=== PATIENT | male | born 1985 | race Caucasian/White ===

== ENCOUNTER 2016-06-29 18:43 | Emergency (ER) | payer OTHER ==
[~2016-06-29] VITALS: Ht 175.3 cm; Wt 101.7 kg
[~2016-06-29 18:43] MED LIST: ASCO500T16 PO; CPR500 PO; FISHOIL PO; HYDR-3124 PO; HYOS0.1255 PO; MULTTAB58 PO; OXYC-81 PO; POLY335040 PO; Probiotic PO
[2016-06-29 18:46] VITALS: BP 166/101; PULSE 86; TEMP 36.6; O2SAT 95; Ht 175.3 cm; Wt 101.7 kg
[2016-06-29] MEDS ORDERED: OXYCODONE/ACETAMINOPHEN 5-325 TAB PO STA (19:06)
--- NOTE | 2016-06-29 19:41 | DIAGNOSTIC IMAGING REPORT ---
THORACIC SPINE 3 VIEWS HISTORY: R sided thoracic back pain COMPARISON: None. FINDINGS: There is no fracture. No subluxation. Disc spaces are preserved. IMPRESSION: No fracture or subluxation within the thoracic spine. Electronically signed by: Adelfo Melgar M.D. 06/29/2016 7:40 PM Dictated Date/Time: 06/29/2016 7:37 PM
[2016-06-29] MEDS ORDERED: CYCL10TA6 PO (19:53)
[2016-06-29] MEDS ORDERED: OXYC-57 PO (19:53)
[2016-06-29] MEDS ORDERED: PERCOCET HOME PACK PO ONE (20:00)
[2016-06-29] MEDS ORDERED: FLEXERIL HOME PACK 10 MG VIAL PO ONE (20:00)
--- NOTE | 2016-07-01 00:02 | EMERGENCY ROOM VISIT NOTE ---
ED Visit Note First contact with patient: 18:57 Chief Complaint: Back pain. History of Present Illness: Mr. Reardon is a 31-year-old white male who ambulates into the ED accompanied waning of thoracic back pain Patient denies any previous significant history related to his back pain. Patient reports yesterday he picked up his daughter and developed thoracic back pain similar but not as intense as the pain he is having today between his shoulder blades. Approximately one hour after the pain started itself resolved. Patient goes on to report that this afternoon when he woke up from a nap he was having thoracic back pain in the same location between the shoulder blades with right sided prominence; pain has been constant for approximately 6 hours. He reports initially the pain was mild and became severe and has been constant throughout the day. Currently he rates his discomfort as a cramping sensation. He rates his discomfort 8/10. His pain is nonradiating. His pain worsens with palpation of the paraspinous muscles and when his arm saying dependent. He has mild relief when he raises his arms above his head. He has not taken any medications for pain prior to arrival at the hospital. He denies any associated since symptoms including recent direct or repetitive trauma, fevers, chills, sweats, skin eruptions, skin color changes, headache, dizziness, lightheadedness, upper respiratory tract symptoms, cough, wheezing, shortness of breath, abdominal pain , nausea, vomiting, diarrhea, constipation, rectal bleeding, black/tarry stools , urinary symptoms, hematuria, upper extremity weakness/numbness/tingling, neck pain. Review of Systems: As noted above in history of present illness. All body systems were reviewed and found to be negative as noted above. Past Medical History: Patient denies. Current Medications: Patient denies. Allergies to Medications: Patient denies. Social History: Patient is currently employed; he feels safe in his home environment; he admits to tobacco use. Physical Examination: Vital Signs: Date Time Temp Pulse Resp B/P Pulse Ox O2 Delivery O2 Flow Rate FiO2 06/29/16 18:46 36.6 86 18 166/101 95 Room Air GENERAL: 31-year-old male in mild to moderate distress due to pain, nontoxic- appearing, afebrile and hemodynamically stable. NEUROLOGICAL: Awake, alert and oriented to person, place and time. Answering questions appropriately and following commands. Normal gait. Good hand eye coordination. No focal motor or sensory deficits. SKIN: Warm, dry and pink. No soft tissue eruptions or trauma noted. HEENT: Atraumatic and normocephalic. BACK: No tenderness over the bony cervical, thoracic and lumbar spines. Moderate tenderness throughout the bilateral mid trapezius and rhomboid muscles with muscle spasm. No bony deformity, bony crepitus, step-offs, swelling or ecchymosis. No skin eruptions. No CVA tenderness. THORAX: Lungs sounds are clear to auscultation and equal bilaterally with symmetrical chest wall. No wheezing, rales or rhonchi. No crepitus, tenderness , subcutaneous air or deformities noted. ABDOMEN: Flat, soft and nontender. Positive bowel sounds in all quadrants. No guarding, rigidity or organomegaly. UPPER EXTREMITIES: Moves all extremities well on command and with purpose. No tenderness in the shoulders, humerus is, elbows, forearms, wrists or hands. Full range of motion of the shoulders, elbows, forearms, wrists and hands against resistance. 2+ bicipital, tricipital and brachial radialis deep tendon reflexes intact and equal bilaterally. Able to distinguish light sensations through all dermatomes of the upper extremities. Throughout the extremities to skin was warm and pink and capillary refill is brisk. Distal pulses were intact and equal bilaterally. He was able to distinguish light sensations through all dermatomes. 5/5 muscle strength in flexion, extension, abduction and abduction of the shoulders, flexion and extension of the elbows, pronation and supination of the forearms and flexion, extension and radial and ulnar deviation of the wrist ED Course: Patient is assessed as noted above. Patient was given a 5/325 mg Percocet tablet by mouth for pain and ice for muscle spasm. Thoracic Back X-Rays: Were read by myself and the radiologist showing no acute fractures or subluxations. Patient was educated about today's findings and instructed on his treatment plan ; he verbalized understanding and agreement with this plan. Clinical Impression: Thoracic paraspinous muscle pain and spasm. Disposition: Patient discharged home in stable condition; prior to departure he was reassessed and subjectively reported he was feeling slightly better and rated his overall discomfort 6/10. Plan: Comfort measures were discussed with the patient including rest, ice, proper lifting and moving techniques sliding pain medication scale of ibuprofen, acetaminophen and Percocet; patient was given appropriate precautions for narcotic use in his name was run through [facility] database and no red flags were noted. Additionally he was prescribed Flexeril instructed on achieves. Patient was signed off work for 3 days. Patient was encouraged to contact his PCP for follow-up care and treatment. Patient was encouraged return the ED for worsening pain, fevers, upper extremity weakness/numbness/tingling or any new/concerning symptoms.
== END 2016-06-29 20:01 | disposition home or self-care (01) ==
LOC: C.EDB 18:44 → C.EDD 20:01
DX: M54.6 Pain in thoracic spine (principal); M62.830 Muscle spasm of back; Z72.0 Tobacco use

== ENCOUNTER 2017-10-05 07:03 | Emergency (ER) | payer OTHER ==
[~2017-10-05] VITALS: Ht 175.3 cm; Wt 96.0 kg
[~2017-10-05 07:03] MED LIST changes: -ASCO500T16 PO; -CPR500 PO; -FISHOIL PO; -HYDR-3124 PO; -HYOS0.1255 PO; +MULT-506 PO; -MULTTAB58 PO; +NICO14DI5 TD; +OMEG10007 PO; -OXYC-81 PO; -POLY335040 PO; -Probiotic PO; +TPRSR25 PO; +ZOLP5TAB PO
[2017-10-05 07:04] VITALS: TEMP 36.8; Ht 175.3 cm; Wt 96.0 kg
[2017-10-05] MEDS ORDERED: ONDANSETRON INJ 2 MG/ML 2 ML VIAL IV STA (07:15)
[2017-10-05] MEDS ORDERED: SODIUM CHLORIDE 0.9% 1000ML 1,000 ML IV STA (07:15)
[2017-10-05] MEDS ORDERED: KETOROLAC TROMETHAMINE 30 MG/ML VIAL IV STA (07:15)
[2017-10-05] MEDS ORDERED: OPTIRAY 320 IV PRN (07:30)
--- NOTE | 2017-10-05 07:33 | DIAGNOSTIC IMAGING REPORT ---
CHEST ONE VIEW PORTABLE HISTORY: Generalized abdominal pain. COMPARISON: Chest 07/11/2017. FINDINGS: The lungs are clear. Cardiac silhouette is normal in size. No pleural effusions. No pneumothorax. IMPRESSION: No acute process. Electronically signed by: Adelfo Melgar M.D. 10/05/2017 7:32 AM Dictated Date/Time: 10/05/2017 7:31 AM
[2017-10-05] MEDS ORDERED: ETOD400T PO (07:39)
[2017-10-05 07:44] LABS: BASO % 0.3 %; BASO ABS # 0.03 K/uL (0-0.2); EOS % 5.3 %; EOS ABS # 0.57 K/uL (0-0.5); HEMATOCRIT 47.1 % (42-52); HEMOGLOBIN 16.6 g/dL (14.0-18.0); IG# 0.01 K/uL (0.00-0.02); LYMPH % 30.5 %; LYMPH ABS # 3.26 K/uL (1.2-3.4); MEAN CORPUSCULAR HGB CONC 35.2 g/dl (32-36); MEAN PLATELET VOLUME 10.6 fL (7.4-10.4); MONO ABS # 0.64 K/uL (0.11-0.59); NEUT % 57.8 %; NEUT ABS # 6.17 K/uL (1.4-6.5); PLATELET COUNT 324 K/uL (130-400); RED CELL DISTRIBUTION WIDTH CV 13.2 % (11.5-14.5); RED CELL DISTRIBUTION WIDTH SD 42.2 fL (36.4-46.3); WHITE BLOOD COUNT 10.68 K/uL (4.8-10.8)
[2017-10-05 07:54] LABS: PTT PATIENT 28.1 SECONDS (21.0-31.0)
[2017-10-05 08:04] LABS: ALBUMIN 4.1 gm/dl (3.4-5.0); CALCIUM 9.4 mg/dl (8.5-10.1); CREATININE 0.97 mg/dl (0.60-1.40); POTASSIUM 3.8 mmol/L (3.5-5.1); TOTAL PROTEIN 7.6 gm/dl (6.4-8.2)
--- NOTE | 2017-10-05 09:07 | EMERGENCY ROOM VISIT NOTE ---
History Report prepared by Mervin: Obed Dael Under the Supervision of: Dr. Samuel Renee D.O. First contact with patient: 07:10 Chief Complaint: ABDOMINAL PAIN Stated Complaint: LEFT ABDOMINAL PAIN Nursing Triage Summary: pt reports lower left abd pain started this am at 0400 was at work. intermittent pain for approx 3 weeks. denies any nausea or vomiting "stools have been pretty "irratic History of Present Illness The patient is a 32 year old male who presents to the Emergency Room with complaints of constant left lower abdominal pain beginning at 0400 today. The patient states that his pain started this morning when he was sitting in a chair at work. He notes that he has been having intermittent abdominal pain for the last three weeks, but he reports that his episode of pain this morning has been the worst that he has had. The patient states that he typically has been having pain for a few hours hours 1-2 times a day for the last three weeks. He notes that he has not noticed any triggers that bring on his pain. He reports that his stool has been irregular, and he states that he had very solid stool yesterday and diarrhea today. He notes that it feels as though he needs to have a bowel movement but he reports that he is unable to. He rates his pain as a 7/ 10. He denies any fever, urinary symptoms, and back pain. The patient states that he has a history of atrial fibrillation but is not on a blood thinner. Source of History: patient Onset: 0400 today Position: abdomen (left lower) Symptom Intensity: 7/10 Timing: constant Associated Symptoms: + diarrhea, No fevers, No back pain, No urinary symptoms Note: The patient complains of irregular bowel movements and of the need to have a bowel movement. Review of Systems See HPI for pertinent positives & negatives. A total of 10 systems reviewed and were otherwise negative. Past Medical & Surgical Medical Problems: (1) Afib (2) Bronchitis (3) Kidney stone (4) Prostatitis (5) s/p Right Ankle Surgery Surgical Problems: (1) [place] teeth removed Social History Problems: (1) Alcohol consumption binge drinking Family History Cancer Heart disease Hypertension Lung disease Social History Smoking Status: Current Every Day Smoker Alcohol Use: occasionally Drug Use: none Marital Status: Housing Status: lives with family Occupation Status: employed Current/Historical Medications Scheduled Fish Oil ([employer]-3), 1 CAP PO DAILY Metoprolol Succinate (Metoprolol Succinate ER), 25 MG PO QAM Multivitamin (Multivitamin), 1 TAB PO DAILY Scheduled PRN Etodolac (Etodolac), 400 MG PO DAILY PRN for Pain Zolpidem Tartrate (Ambien), 5 MG PO HS PRN for Sleep Allergies Coded Allergies: No Known Allergies (Verified , 10/05/17) Physical Exam Vital Signs Date Time Temp Pulse Resp B/P (MAP) Pulse Ox O2 Delivery O2 Flow Rate FiO2 10/05/17 10:00 71 15 121/70 97 Room Air 10/05/17 09:00 68 15 140/67 95 Room Air 10/05/17 07:04 36.8 88 18 151/99 96 Room Air Physical Exam CONSTITUTIONAL/VITAL SIGNS: Reviewed / noted above. GENERAL: Non-toxic in appearance. INTEGUMENTARY: Warm, dry, and Mona. HEAD: Normocephalic. EYES: without scleral icterus or trauma. ENT/OROPHARYNX: clear and moist. LYMPHADENOPATHY/NECK: Is supple without lymphadenopathy or meningismus. RESPIRATORY: Lungs clear and equal. CARDIOVASCULAR: Regular rate and rhythm. GI/ABDOMEN: Soft. No organomegaly or pulsatile mass. No rebound or guarding. Normal bowel sounds. Tenderness to left lower quadrant. EXTREMITIES: Warm and well perfused. BACK: No CVA tenderness. NEUROLOGICAL: Intact without focal deficits. PSYCHIATRIC: normal affect. MUSCULOSKELETAL: Normally developed with good muscle tone. Medical Decision & Procedures ER Provider Diagnostic Interpretation: Radiology results as stated below per my review and radiologist interpretation: CHEST ONE VIEW PORTABLE FINDINGS: The lungs are clear. Cardiac silhouette is normal in size. No pleural effusions. No pneumothorax. IMPRESSION: No acute process. Electronically signed by: Adelfo Melgar M.D. 10/05/2017 7:32 AM ABD/PELVIS IV AND ORAL CONT FINDINGS: Lung bases are clear. Liver spleen and pancreas are unremarkable. Several nonspecific upper abdominal nodes which have been described previously and appear unchanged. No new or progressive cat pathology is present. Normal enhancement characteristics of the kidneys. No evidence for hydronephrosis. The abdominal bowel pattern is nonobstructive. Suggestion of a moderate wall thickening of the sigmoid colon suggesting a nonspecific colitis. No evidence for abscess collection or obstruction. Normal appendix. Bladder is midline. IMPRESSION: 1. Mild nonspecific sigmoid colitis. 2. No evidence for abscess collection or obstruction. 3. Normal appendix. 4. Otherwise unremarkable exam. The above report was generated using voice recognition software. It may contain grammatical, syntax or spelling errors. Electronically signed by: Henri Self M.D. 10/05/2017 9:58 AM Laboratory Results 10/05/17 07:20 Red Blood Count 5.35, Mean Corpuscular Volume 88.0, Mean Corpuscular Hemoglobin 31.0, Mean Corpuscular Hemoglobin Concent 35.2, Mean Platelet Volume 10.6, Neutrophils (%) (Auto) 57.8, Lymphocytes (%) (Auto) 30.5, Monocytes (%) (Auto) 6.0, Eosinophils (%) (Auto) 5.3, Basophils (%) (Auto) 0.3, Neutrophils # (Auto) 6.17, Lymphocytes # (Auto) 3.26, Monocytes # (Auto) 0.64, Eosinophils # (Auto) 0.57, Basophils # (Auto) 0.03 10/05/17 07:20 Test 10/05/17 07:20 10/05/17 09:00 White Blood Count 10.68 K/uL (4.8-10.8) Red Blood Count 5.35 M/uL (4.7-6.1) Hemoglobin 16.6 g/dL (14.0-18.0) Hematocrit 47.1 % (42-52) Mean Corpuscular Volume 88.0 fL (80-100) Mean Corpuscular Hemoglobin 31.0 pg (25-34) Mean Corpuscular Hemoglobin Concent 35.2 g/dl (32-36) Platelet Count 324 K/uL (130-400) Mean Platelet Volume 10.6 fL (7.4-10.4) Neutrophils (%) (Auto) 57.8 % Lymphocytes (%) (Auto) 30.5 % Monocytes (%) (Auto) 6.0 % Eosinophils (%) (Auto) 5.3 % Basophils (%) (Auto) 0.3 % Neutrophils # (Auto) 6.17 K/uL (1.4-6.5) Lymphocytes # (Auto) 3.26 K/uL (1.2-3.4) Monocytes # (Auto) 0.64 K/uL (0.11-0.59) Eosinophils # (Auto) 0.57 K/uL (0-0.5) Basophils # (Auto) 0.03 K/uL (0-0.2) RDW Standard Deviation 42.2 fL (36.4-46.3) RDW Coefficient of Variation 13.2 % (11.5-14.5) Immature Granulocyte % (Auto) 0.1 % Immature Granulocyte # (Auto) 0.01 K/uL (0.00-0.02) Prothrombin Time 10.7 SECONDS (9.0-12.0) Prothromb Time International Ratio 1.0 (0.9-1.1) Activated Partial Thromboplast Time 28.1 SECONDS (21.0-31.0) Partial Thromboplastin Ratio 1.1 Anion Gap 10.0 mmol/L (3-11) Est Creatinine Clear Calc Drug Dose 125.0 ml/min Estimated GFR () 119.2 Estimated GFR (Non- 102.9 BUN/Creatinine Ratio 15.1 (10-20) Calcium Level 9.4 mg/dl (8.5-10.1) Total Bilirubin 0.5 mg/dl (0.2-1) Direct Bilirubin 0.1 mg/dl (0-0.2) Aspartate Amino Transf (AST/SGOT) 53 U/L (15-37) Alanine Aminotransferase (ALT/SGPT) 38 U/L (12-78) Alkaline Phosphatase 143 U/L (45-117) Total Protein 7.6 gm/dl (6.4-8.2) Albumin 4.1 gm/dl (3.4-5.0) Lipase 125 U/L (73-393) Urine Color YELLOW Urine Appearance CLEAR (CLEAR) Urine pH 5.0 (4.5-7.5) Urine Specific [place] 1.010 (1.000-1.030) Urine Protein NEG (NEG) Urine Glucose (UA) NEG (NEG) Urine Ketones NEG (NEG) Urine Occult Blood NEG (NEG) Urine Nitrite NEG (NEG) Urine Bilirubin NEG (NEG) Urine Urobilinogen NEG (NEG) Urine Leukocyte Esterase NEG (NEG) Urine WBC (Auto) 0 /hpf (0-5) Urine RBC (Auto) 0-4 /hpf (0-4) Urine Hyaline Casts (Auto) 0 /lpf (0-5) Urine Epithelial Cells (Auto) 0-5 /lpf (0-5) Urine Bacteria (Auto) NEG (NEG) Laboratory results as stated above per my review. Medications Administered Medications (Trade) Dose Ordered Sig/Kimmie Route Start Time Stop Time Status Last Admin Dose Admin Sodium Chloride 1,000 ml @ 999 mls/hr Q1H1M STAT IV 10/05/17 07:15 10/05/17 08:15 DC 10/05/17 07:34 999 MLS/HR Ondansetron HCl (Zofran Inj) 4 mg NOW STAT IV 10/05/17 07:15 10/05/17 07:17 DC 10/05/17 07:29 4 MG Ketorolac Tromethamine (Toradol Inj) 30 mg NOW STAT IV 10/05/17 07:15 10/05/17 07:17 DC 10/05/17 07:29 30 MG ED Course 0711: Previous medical records were reviewed. The patient was evaluated in room B11. A complete history and physical examination was performed. 0715: Toradol Inj 30mg IV, Zofran Inj 4mg IV, Sodium Chloride 1000 ml @ 999 mls/ hr IV 1035: On reevaluation, the patient is stable. I discussed the results and findings with the patient. He verbalized agreement of the treatment plan. The patient was discharged home. Medical Decision Differential considered: pancreatitis, hepatitis, or acute cholecystitis, AAA, UTI, pyelonephritis, kidney stones, appendicitis, diverticulitis, shingles, bowel obstruction mesenteric ischemia, intussusception,hernia, testicular torsion, ovarian torsion, ruptured ovarian cyst,ectopic , . This is a 32-year-old male who presents to the ED with a chief complaint of abdominal pain. The patient states that his pain started suddenly around 4 AM this morning. He states that he was sitting at the time. At he has had intermittent pain like this for the past several weeks. He states that it normally lasts several hours and he reports that he gets it once or twice per day. He also reports some bowel issues. He states that sometimes he feels constipated and other times he has diarrhea. Denies any fevers or urinary symptoms. Denies any respiratory or chest complaints. He does report a history of A. fib. He is currently on a beta-jaky. His physical exam reveals some tenderness in the left lower abdomen. He does not have any CVA tenderness or other significant exam findings. He is in no distress. Initial blood pressure was a little elevated at 151/99. This could be related to his pain. A CT scan of the abdomen pelvis reveals mild sigmoid colitis but is nonspecific. A chest x-ray was negative for acute disease. Urinalysis did not show any abnormality. CBC, complete metabolic panel and lipase were unremarkable. The patient was told the results of the test. He is felt to be stable for discharge and outpatient follow-up. Symptomatic conservative care was recommended. Medication Reconcilliation Current Medication List: was personally reviewed by me Blood Pressure Screening Patient's blood pressure: Normal blood pressure Blood pressure disposition: Did not require urgent referral Impression Primary Impression: Colitis Scribe Attestation The scribe's documentation has been prepared under my direction and personally reviewed by me in its entirety. I confirm that the note above accurately reflects all work, treatment, procedures, and medical decision making performed by me. Departure Information Dispostion Home / Self-Care Referrals Kirt Ellington M.D. (PCP) Forms Call Back Authorization, HOME CARE DOCUMENTATION FORM, IMPORTANT VISIT INFORMATION Patient Instructions My [facility] [address] Additional Instructions Your blood work, chest x-ray and urinalysis today were unremarkable. The CT scan of your abdomen revealed a nonspecific sigmoid colitis. This could be caused by a virus. Anticipate improvement of your symptoms over the next week or less. If symptoms persist, see your doctor for GI referral. Follow-up with your doctor for further care and evaluation in 1-2 days. Return to the emergency department for worsening or new symptoms or any concerns. You have been examined and treated today on an emergency basis only. This is not a substitute for, or an effort to provide, complete comprehensive medical care. It is impossible to recognize and treat all injuries or illnesses in a single emergency department visit. It is therefore important that you follow up closely with your doctor. Call as soon as possible for an appointment.
--- NOTE | 2017-10-05 09:59 | DIAGNOSTIC IMAGING REPORT ---
ABD/PELVIS IV AND ORAL CONT CT DOSE: 658.72 mGy.cm HISTORY: Pain ABDOMINAL PAIN/GI TECHNIQUE: Multiaxial CT images of the abdomen and pelvis were performed following the use of intravenous and oral contrast. A dose lowering technique was utilized adhering to the principles of ALARA. COMPARISON STUDY: 03/01/2012 FINDINGS: Lung bases are clear. Liver spleen and pancreas are unremarkable. Several nonspecific upper abdominal nodes which have been described previously and appear unchanged. No new or progressive cat pathology is present. Normal enhancement characteristics of the kidneys. No evidence for hydronephrosis. The abdominal bowel pattern is nonobstructive. Suggestion of a moderate wall thickening of the sigmoid colon suggesting a nonspecific colitis. No evidence for abscess collection or obstruction. Normal appendix. Bladder is midline. IMPRESSION: 1. Mild nonspecific sigmoid colitis. 2. No evidence for abscess collection or obstruction. 3. Normal appendix. 4. Otherwise unremarkable exam. The above report was generated using voice recognition software. It may contain grammatical, syntax or spelling errors. Electronically signed by: Henri Self M.D. 10/05/2017 9:58 AM Dictated Date/Time: 10/05/2017 9:49 AM
[2017-10-05 10:58] VITALS: BP 148/77; PULSE 56; O2SAT 96
== END 2017-10-05 10:59 | disposition home or self-care (01) ==
LOC: C.EDB 07:04
DX: K52.9 Noninfective gastroenteritis and colitis, unspecified (principal); I48.91 Unspecified atrial fibrillation; Z87.442 Personal history of urinary calculi; F17.210 Nicotine dependence, cigarettes, uncomplicated; Z80.9 Family history of malignant neoplasm, unspecified; Z82.49 Family history of ischemic heart disease and other diseases of the circulatory system; Z83.6 Family history of other diseases of the respiratory system; Z79.899 Other long term (current) drug therapy

== ENCOUNTER 2019-05-17 13:39 | Inpatient (IN) ==
--- NOTE | 2019-05-17 13:59 | Emergency Department Note ---
History of Present Illness General Chief complaint: Arrhythmia/Palpitations Stated complaint: HEART PALPITATIONS- HX AFIB Time Seen by Provider: 05/17/19 13:48 History of Present Illness This is a 34-year-old male who presents to the emergency department via private vehicle with complaints of "heart palpitations, history of A. fib". The patient has a history of A. fib last of which was July 2017. He is managed with metoprolol. He follows with Dr. Ferrell of cardiology. He has been doing well. 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 He states that he was asleep for about 4 hours, and then around 11:45 AM today he he felt as though his heart was racing and described the heart is doing "cart wheels". He denies any drug use. No caffeine use. No recent surgeries. He also noted that he was feeling short of breath. No chest pain. He smokes 1 pack/day of cigarettes and drinks about 6 beers per day. Home Medications Home Medications Medication Instructions Recorded Confirmed Type ibuprofen 800 mg PO TIDM PRN 02/26/18 05/17/19 History metoprolol succinate 25 mg PO QAM 02/26/18 05/17/19 History omega 8-hav-[id number]-fish oil [Fish Oil] 1 cap PO QAM 02/26/18 05/17/19 History loratadine [Claritin] 10 mg PO DAILY PRN 08/16/18 05/17/19 History oxycodone-acetaminophen 1 tab PO DAILY PRN 05/17/19 05/17/19 History telmisartan 40 mg PO DAILY 05/17/19 05/17/19 History Allergies Allergy/AdvReac Type Severity Reaction Status Date / Time No Known Allergies Allergy Verified 05/17/19 14:40 Past Med/Surg History Medical History (Updated 05/17/19 @ 16:00 by Douglas Jackson PA-C) Alcohol consumption binge drinking (Acute) Atrial fibrillation (Acute) Prostatitis (Acute) Surgical History History of ankle surgery Hx of rotator cuff surgery Social History Feels Safe at Home: Yes Smoking Status: Current every day smoker Review of Systems A total of 10 systems reviewed and were otherwise negative Physical Exam Vital Signs Vital Signs - 24 hr 05/17/19 13:39 05/17/19 13:42 05/17/19 13:53 Temperature 36.5 C Temperature Source Oral Pulse Rate 85 154 H Pulse Rhythm Regular Pulse Strength Normal Respiratory Rate 20 18 Respiratory Effort / Characteristics Non-Labored Spontaneous Respiratory Depth Normal Respiratory Pattern Regular Blood Pressure 151/105 H Blood Pressure Mean 120 Blood Pressure Position Sitting Pulse Oximetry 97 Oxygen Delivery Method Room Air Room Air Sepsis Recent Fever Within 48 Hours No Sepsis Action Taken by Nursing No Action Required 05/17/19 13:56 05/17/19 14:00 05/17/19 14:15 Temperature Temperature Source Pulse Rate 165 H 177 H 159 H Pulse Rhythm Pulse Strength Respiratory Rate 15 17 20 Respiratory Effort / Characteristics Respiratory Depth Respiratory Pattern Blood Pressure 138/81 Blood Pressure Mean 110 Blood Pressure Position Pulse Oximetry Oxygen Delivery Method Sepsis Recent Fever Within 48 Hours Sepsis Action Taken by Nursing 05/17/19 14:31 05/17/19 14:32 05/17/19 14:45 Temperature Temperature Source Pulse Rate 172 H 134 H 120 H Pulse Rhythm Pulse Strength Respiratory Rate 25 H 20 17 Respiratory Effort / Characteristics Respiratory Depth Respiratory Pattern Blood Pressure 164/89 H 135/80 Blood Pressure Mean 115 95 Blood Pressure Position Pulse Oximetry Oxygen Delivery Method Sepsis Recent Fever Within 48 Hours Sepsis Action Taken by Nursing 05/17/19 15:00 05/17/19 15:15 05/17/19 15:30 Temperature Temperature Source Pulse Rate 124 H 118 H 112 H Pulse Rhythm Pulse Strength Respiratory Rate 13 19 16 Respiratory Effort / Characteristics Respiratory Depth Respiratory Pattern Blood Pressure 149/80 H 122/69 122/95 Blood Pressure Mean 120 86 100 Blood Pressure Position Pulse Oximetry Oxygen Delivery Method Sepsis Recent Fever Within 48 Hours Sepsis Action Taken by Nursing VITAL SIGNS - Vital signs and nursing notes were reviewed. Hypertensive, tachycardic. GENERAL - 34-year-old male appearing his stated age who is in no acute distress. Communicates well with provider and answers questions appropriately. He is sitting upright in the examination bed and appears to be mildly dyspneic. SKIN - Without rashes. No meningeal or petechial rash. HEAD - NC/AT. EYES - PERRL with EOMI bilaterally. Sclera anicteric. EARS - No deformities of external structures noted on gross examination bilaterally. NOSE - Midline and without cyanosis. No epistaxis or purulent drainage noted. MOUTH/OROPHARYNX - Without perioral cyanosis. NECK - Neck with FROM. Supple to palpation. No lymphadenopathy noted. No nuchal rigidity. LUNGS - Chest wall symmetric without accessory muscle use, intercostals retractions, or central cyanosis. Normal vesicular breath sounds CTA B/L. No wheezes, rales, or rhonchi appreciated. CARDIAC -regular rate and rhythm and tachycardic. No murmur, rubs, or gallops appreciated. ABDOMEN - Abdominal contour normal without pulsations or visible masses. No tenderness, palpable masses, hepatosplenomegaly, or ascites noted. EXTREMITIES - No clubbing or peripheral cyanosis. No pretibial edema present. +5/5 strength noted in UE/LE bilaterally. NEUROLOGIC - Cranial nerves II through XII grossly intact. Sensory intact to light touch throughout. PSYCH - A&Ox3 and cooperates fully with examiner. Pt is very pleasant and interacts well with examiner. Course Administered Medications Diltiazem HCl 125 mg/ Dextrose 125 mls @ 5 mls/hr IV .Q24H [facility]; Protocol Stop: 06/16/19 14:14 Last Titration: 05/17/19 15:33 Dose: 10 mg/hr, 10 mls/hr Documented by: [id number] Cosigned by: [id number] Admin: 05/17/19 14:30 Dose: 5 mg/hr, 5 mls/hr Documented by: [id number] Cosigned by: [id number] Discontinued Medications Diltiazem HCl (Cardizem) 10 mg IV NOW STA Stop: 05/17/19 14:13 Last Admin: 05/17/19 14:30 Dose: 10 mg Documented by: [id number] Cosigned by: [id number] Miscellaneous () 1 ea N/A NOW STA Stop: 05/17/19 14:13 Last Admin: 05/17/19 14:31 Dose: Not Given Documented by: [id number] Critical Care Time I have personally spent between 35 and 40 minutes of critical care time in the direct management of this patient. This includes bedside care, interpretation of diagnostic studies, and testing, discussion with consultants, patient, and other required patient management activities. Patient was reassessed several times. Patient has a diagnosis of A. fib with RVR and is requiring a Cardizem drip. This 35-40 minutes is in excess of all separately billable procedures. Medical Decision Making Laboratory Data Result diagrams: 05/17/19 14:10 05/17/19 14:10 Lab Results 05/17/19 05/17/19 05/17/19 Range/Units 14:10 14:10 14:10 WBC 8.40 (4.8-10.8) K/uL RBC 5.59 (4.7-6.1) M/uL Hgb 17.8 (14.0-18.0) g/dL Hct 50.1 (42-52) % MCV 89.6 (80-100) fL MCH 31.8 (25-34) pg MCHC 35.5 (32-36) g/dL RDW Std Deviation 41.3 (36.4-46.3) fL RDW Coeff of Freedom 12.7 (11.5-14.5) % Plt Count 378 (130-400) K/uL MPV 10.7 H (7.4-10.4) fL Immature Gran % (Auto) 0.1 % Neut % (Auto) 54.9 % Lymph % (Auto) 33.6 % [place] % (Auto) 7.3 % Eos % (Auto) 3.9 % Baso % (Auto) 0.2 % Immature Gran # (Auto) 0.01 (0.00-0.02) K/uL Neut # (Auto) 4.61 (1.4-6.5) K/uL Lymph # (Auto) 2.82 (1.2-3.4) K/uL [place] # (Auto) 0.61 H (0.11-0.59) K/uL Eos # (Auto) 0.33 (0-0.5) K/uL Baso # (Auto) 0.02 (0-0.2) K/uL PT 10.4 (9.0-12.0) Seconds INR 1.0 (0.9-1.1) APTT 30.2 (21.0-31.0) Seconds PTT Ratio 1.1 Sodium 137 (136-145) mmol/L Potassium 4.2 (3.5-5.1) mmol/L Chloride 107 (98-107) mmol/L Carbon Dioxide 24 (21-32) mmol/L Anion Gap 7.0 (3-11) BUN 8 (7-18) mg/dl Creatinine 1.00 (0.6-1.4) mg/dl Est Cr Clr Drug Dosing 125.5 ml/min Est GFR ( Amer) 113.3 Est GFR (Non-Af Amer) 97.8 BUN/Creatinine Ratio 8.0 L (10-20) Glucose 110 H (70-99) mg/dl Calcium 9.3 (8.5-10.1) mg/dl Total Bilirubin 0.4 (0.2-1) mg/dl AST 19 (15-37) U/L ALT 35 (12-78) U/L Alkaline Phosphatase 83 (45-117) U/L Troponin I < 0.015 (0-0.045) ng/ml Total Protein 7.5 (6.4-8.2) gm/dl Albumin 4.0 (3.4-5.0) gm/dl Globulin 3.5 (2.5-4.0) gm/dl Albumin/Globulin Ratio 1.1 (0.9-2) Lipase 112 (73-393) U/L TSH 0.884 (0.300-4.500) uIu/ml Specimen Hemolysis Urine Color Urine Appearance (Clear) Urine pH (4.5-7.5) Ur Specific [place] (1.000-1.030) Urine Protein (Negative) Urine Glucose (UA) (Negative) Urine Ketones (Negative) Urine Blood (Negative) Urine Nitrite (Negative) Urine Bilirubin (Negative) Urine Urobilinogen (Negative) Ur Leukocyte Esterase (Negative) 05/17/19 Range/Units 14:30 WBC (4.8-10.8) K/uL RBC (4.7-6.1) M/uL Hgb (14.0-18.0) g/dL Hct (42-52) % MCV (80-100) fL MCH (25-34) pg MCHC (32-36) g/dL RDW Std Deviation (36.4-46.3) fL RDW Coeff of Freedom (11.5-14.5) % Plt Count (130-400) K/uL MPV (7.4-10.4) fL Immature Gran % (Auto) % Neut % (Auto) % Lymph % (Auto) % [place] % (Auto) % Eos % (Auto) % Baso % (Auto) % Immature Gran # (Auto) (0.00-0.02) K/uL Neut # (Auto) (1.4-6.5) K/uL Lymph # (Auto) (1.2-3.4) K/uL [place] # (Auto) (0.11-0.59) K/uL Eos # (Auto) (0-0.5) K/uL Baso # (Auto) (0-0.2) K/uL PT (9.0-12.0) Seconds INR (0.9-1.1) APTT (21.0-31.0) Seconds PTT Ratio Sodium (136-145) mmol/L Potassium (3.5-5.1) mmol/L Chloride (98-107) mmol/L Carbon Dioxide (21-32) mmol/L Anion Gap (3-11) BUN (7-18) mg/dl Creatinine (0.6-1.4) mg/dl Est Cr Clr Drug Dosing ml/min Est GFR ( Amer) Est GFR (Non-Af Amer) BUN/Creatinine Ratio (10-20) Glucose (70-99) mg/dl Calcium (8.5-10.1) mg/dl Total Bilirubin (0.2-1) mg/dl AST (15-37) U/L ALT (12-78) U/L Alkaline Phosphatase (45-117) U/L Troponin I (0-0.045) ng/ml Total Protein (6.4-8.2) gm/dl Albumin (3.4-5.0) gm/dl Globulin (2.5-4.0) gm/dl Albumin/Globulin Ratio (0.9-2) Lipase (73-393) U/L TSH (0.300-4.500) uIu/ml Specimen Hemolysis Urine Color Yellow Urine Appearance Clear (Clear) Urine pH 6.0 (4.5-7.5) Ur Specific [place] 1.009 (1.000-1.030) Urine Protein Negative (Negative) Urine Glucose (UA) Negative (Negative) Urine Ketones Negative (Negative) Urine Blood Negative (Negative) Urine Nitrite Negative (Negative) Urine Bilirubin Negative (Negative) Urine Urobilinogen Negative (Negative) Ur Leukocyte Esterase Negative (Negative) MDM Narrative Patient was seen and evaluated as above in room B12. Review was performed of nursing notes and vital signs. I did review pertinent previous visits and patient history. Patient has a history of atrial fibrillation last in the system appeared to be in July 2017. After obtaining a thorough history and physical examination the above work up was performed. Patient presents to us today with heart racing and dyspnea. He is nontoxic on exam but does appear to be mildly dyspneic. On the monitor, his heart rate is between 101-195 bpm. This is consistent with atrial fibrillation. An EKG was obtained at bedside and reveals atrial fibrillation with RVR at a rate of 114 bpm. QTc [address] elevation. PVC noted. Patient was started on a Cardizem drip. 10 mg bolus w ith drip started. The drip was then titrated up as needed. The heart rate improved nicely. He was no longer feeling short of breath. I do not suspect PE. CBC reveals no leukocytosis or anemia. No emergent metabolic disturbance. Troponin is negative. Urinalysis negative. Case discussed with the hospitalist. While in the department, I personally reevaluated the patient several times and each time the patient was found to be resting comfortably. The patient was educated upon management, educated upon todays findings/results, and was amenable to staying. Please refer to further documentation regarding his stay. Case was discussed with the attending physician. Given the patient's presentation and diagnosis of A. fib with RVR it was felt pertinent to keep the patient on continuous cardiac monitoring. The rate on the monitor varied from 102 bpm -295 bpm. Atrial fibrillation was noted on the rhythm. In the evaluation and treatment of this patient, the following differential diag noses were considered: CA, ASC, Dysrhythmia, Angina, Mediastinitis, GERD, Esophagitis, PE, Pneumonia, Bronchitis, Costochondritis, Rib Fracture, Zoster. Impression & Plan Atrial fibrillation with rapid ventricular response, Dyspnea Discharge Plan Visit Data Chief Complaint: Arrhythmia/Palpitations Stated Complaint: HEART PALPITATIONS- HX AFIB ED Provider: Mustapha Maki ED Midlevel Provider: Douglas Jackson Discharge Problem: Atrial fibrillation with rapid ventricular response, Dyspnea Patient Disposition: Admitted As Inpatient Condition: Good Forms Stand Alone Forms: My [facility] [place] Security Scorecard Prescriptions Prescriptions: No Action ibuprofen 800 mg tablet 800 mg PO TIDM PRN (Reason: Pain) RF: 0 metoprolol succinate 25 mg tablet extended release 24 hr 25 mg PO QAM RF: 0 omega 7-nqy-xcf-fish oil [Fish Oil] 1,000 mg (120 mg-180 mg) Capsule 1 cap PO QAM RF: 0 loratadine [Claritin] 10 mg Tablet 10 mg PO DAILY PRN (Reason: Allergy Symptoms) RF: 0 telmisartan 40 mg tablet 40 mg PO DAILY RF: 0 oxycodone-acetaminophen 5-325 mg tablet 1 tab PO DAILY PRN (Reason: Pain) RF: 0 Referrals Referrals: Kirt Ellington MD [Primary Care Provider] -
[2019-05-17] MEDS ORDERED: dilTIAZem HCl 5 MG/ML 5 ML VIAL IV STA (14:12)
[2019-05-17] MEDS ORDERED: STAT IV Infusion **Titration per Protocol STA (14:12)
[2019-05-17] MEDS: dilTIAZem HCL 125 MG in DEXTROSE 5% 100 ML IV SCH ×2 (14:30→22:29)
--- NOTE | 2019-05-17 14:42 | XRay Report ---
XR chest 1V portable CLINICAL HISTORY: 34 years-old Male presenting with dyspnea. TECHNIQUE: Portable upright AP view of the chest was obtained. COMPARISON: 08/16/2018. FINDINGS: Cardiomediastinal silhouette normal. No focal opacity. No large effusion or pneumothorax. Osseous str uctures normal. Upper abdomen normal. IMPRESSION: 1. No acute cardiopulmonary disease. ACT 112: Negative or not required by law. Electronically signed by: [id number] Vang M.D. 05/17/2019 2:41 PM
[2019-05-17 14:43] LABS: Alanine Aminotransferase 35 U/L (12-78); Aspartate Aminotransferase 19 U/L (15-37); Blood Urea Nitrogen 8 mg/dl (7-18); Calcium 9.3 mg/dl (8.5-10.1); Carbon Dioxide 24 mmol/L (21-32); Chloride 107 mmol/L (98-107); Creatinine Clr Calc Pharmacy 125.5 ml/min; Est GFR (African American) 113.3; Est GFR (Non-African American) 97.8; Glucose 110 mg/dl (70-99); Lipase 112 U/L (73-393); Potassium 4.2 mmol/L (3.5-5.1); Sodium 137 mmol/L (136-145)
[2019-05-17 14:44] LABS: Basophils # (auto) 0.02 K/uL (0-0.2); Basophils % (auto) 0.2 %; Eosinophils # (auto) 0.33 K/uL (0-0.5); Eosinophils % (auto) 3.9 %; Hematocrit (blood only) 50.1 % (42-52); Hemoglobin 17.8 g/dL (14.0-18.0); Immature Granulocytes # (auto) 0.01 K/uL (0.00-0.02); Immature Granulocytes % (auto) 0.1 %; Lymphocytes # (auto) 2.82 K/uL (1.2-3.4); Lymphocytes % (auto) 33.6 %; Mean Corpuscular Hemoglobin 31.8 pg (25-34); Mean Corpuscular Hgb Conc 35.5 g/dL (32-36); Mean Corpuscular Volume 89.6 fL (80-100); Mean Platelet Volume 10.7 fL (7.4-10.4); Monocytes # (auto) 0.61 K/uL (0.11-0.59); Monocytes % (auto) 7.3 %; Neutrophils # (auto) 4.61 K/uL (1.4-6.5); Neutrophils % (auto) 54.9 %; Platelet Count 378 K/uL (130-400); RDW Coefficient of Variation 12.7 % (11.5-14.5); RDW Standard Deviation 41.3 fL (36.4-46.3); Red Blood Count 5.59 M/uL (4.7-6.1)
[2019-05-17 14:57] LABS: Partial Thromboplastin Ratio 1.1; Partial Thromboplastin Time 30.2 Seconds (21.0-31.0); Prothrombin Time 10.4 Seconds (9.0-12.0)
[2019-05-17 14:58] LABS: Albumin Globulin Ratio 1.1 (0.9-2); Alkaline Phosphatase 83 U/L (45-117); Bilirubin,Total 0.4 mg/dl (0.2-1); Globulin 3.5 gm/dl (2.5-4.0); Thyroid Stimulating Hormone 0.884 uIu/ml (0.300-4.500); Total Protein 7.5 gm/dl (6.4-8.2); Troponin I < 0.015 ng/ml (0-0.045)
[2019-05-17 15:00] LABS: Appearance Urine Clear (Clear); Bilirubin Urine Negative (Negative); Blood Urine Negative (Negative); Color Urine Yellow; Glucose Urine UA Negative (Negative); Ketones Urine Negative (Negative); Leukocyte Esterase Urine Negative (Negative); Nitrite Urine Negative (Negative); Protein Urine Negative (Negative); Specific Gravity Urine 1.009 (1.000-1.030); Urobilinogen Urine Negative (Negative)
--- NOTE | 2019-05-17 17:08 | History & Physical Report ---
Date of Service May 17, 2019 Assessment & Plan (1) Atrial fibrillation with rapid ventricular response: Pt with symptomatic atrial fib that started at 11:45 a.m. on 05/16 [id number] 0 1st recurrence of afib risk factors include ETOH abuse, tobacco abuse, caffeine use TSH and troponin WNL last echo 2018 WNL admit to PCU continue cardizem bolus/gtt hold metoprolol succinate and change to metoprolol tartrate 25mg QID IV heparin initiated obtain echo, cycle troponins UA drug screen (expect opiates given taking percocet due to shoulder pain from surgery done 2 months ago) ETOH level repeat K and check mag (2) HTN (hypertension): Pt on metoprolol and telmisartan as outpt Pt telmisartan increased on 05/15 from 25mg daily to 40mg daily due to elevated BP monitor closely (3) Alcohol abuse: pt admits to drinking 10-12 light beers daily encourage EOTH cessation start Vit B12 and Folic acid daily likely contributing to arrhythmia AWSS protocol and gabapentin protocol initiated prn lorazepam for s/sx of withdrawal (4) Tobacco abuse: encourage smoking cessation (5) Left ear pain: Pt seen by PCP yesterday 05/15 for L ear pain and swollen lymph node prescribed Zpack - took day 1 complete antibiotic (6) DVT prophylaxis: IV Heparin Disposition: admit to PCU Follow up: PCP Dr. Ellington upon discharge Pt was seen and examined in collaboration with Dr. Cordova, please see addendum Admission and Anticipated Discharge Date Admission Date: 05/17/2019 History of Present Illness Chief Complaint: "My heart was doing cartwheels since 11:45am." Primary Care Provider: Kirt Ellington MD This is a 34 year M who has significant past medical history of alcohol abuse, tobacco abuse, PAF, and HTN who presents to ED secondary to, "my heart was doing cart wheels since 11:45am." Of significance patient was hospitalized 07/2017 secondary to new onset A. fib felt secondary to alcohol use, lifestyle, or lack of sleep. He required IV diltiazem bolus and drip with spontaneous conversion. He was discharged home on metoprolol 25 mg daily. He has been compliant with his metoprolol. He has not had a recurrence until this morning at approximately 11:45 AM when he awoke from sleep feeling like his heart was doing cart wheels. He also had associated shortness of breath. 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 He also elicits that he did start azithromycin yesterday prescribed by PCP secondary to left ear pain and left gland swelling. He took 2- 250 mg tablets but did not take any this morning secondary to not feeling well when he woke up. He currently denies any fever, chills, sweats, lightheadedness, dizziness, syncope, chest pain, cough, hemoptysis, nausea, vomiting, abdominal pain. He did have episode of loose bowel this morning attributing to the antibiotic. Overall he denies any sinus congestion, rhinorrhea and his ear pain is much improved today. He denies any close contacts to +covid 19 pts. He has a good appetite. He does drink alcohol daily, having 10-12 light beers last evening. He admits to drinking 10-12 beers daily. He also is a pack per day smoker for 22 years. He denies any illicit drug use. He has no family history of hypertension but denies any history of cardiac arrhythmias or CAD. Admits to his father having a congenital heart defect at . In ED he remained hemodynamically stable but was significantly tachycardic with initial heart rates in the 190s. He was given Cardizem 10 mg IV bolus and started on 5 mg Cardizem drip. Due to consistently elevated heart rates he required up titration to 10 mg with heart rates maintaining in the low 100s. His CBC, CMP were relatively unremarkable. His TSH and troponin WNL. UA negative. CXR no acute abnormality. Allergies Allergy/AdvReac Type Severity Reaction Status Date / Time No Known Allergies Allergy Verified 05/17/19 14:40 Home Medications Home Medications Medication Instructions Recorded Confirmed Type ibuprofen 800 mg PO TIDM PRN 02/26/18 05/17/19 History metoprolol succinate 25 mg PO QAM 02/26/18 05/17/19 History omega 8-maz-eqa-fish oil [Fish Oil] 1 cap PO QAM 02/26/18 05/17/19 History loratadine [Claritin] 10 mg PO DAILY PRN 08/16/18 05/17/19 History azithromycin 250 mg PO DAILY 05/17/19 05/17/19 History oxycodone-acetaminophen 1 tab PO DAILY PRN 05/17/19 05/17/19 History telmisartan 40 mg PO DAILY 05/17/19 05/17/19 History Past Med/Surg History Medical History (Updated 05/17/19 @ 17:24 by Cara Bolivar PA-C) Alcohol abuse Alcohol consumption binge drinking (Acute) Atrial fibrillation (Acute) HTN (hypertension) Prostatitis (Acute) Tobacco abuse Surgical History (Updated 05/17/19 @ 17:13 by Cara Bolivar PA-C) History of ankle surgery R ankle ligament reconstruction History of shoulder surgery History of vasectomy Hx of rotator cuff surgery Family History Father Congenital heart defect Hypertension Mother Hypertension Aunt Myocardial infarction Denies family history of Arrhythmia Social History (Updated 05/17/19 @ 17:15 by Cara Bolivar PA-C) Preferred Language: Tongan Communication Ability: Effective Automation And Control Engineer Required: No Beliefs That Will Affect Care: None marital status: Current Living Situation: Spouse and Family Current Living Situation Comment: lives at home with and daughters current occupational status: employed 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 Other Information That Helps Us Care for You: No Feels Safe at Home: Yes Safety Concerns: Feels Safe At This Time Smoking Status: Current every day smoker Tobacco Type: cigarettes and smokeless tobacco ; packs per day: 1 ; Years Smoked: 22 ; Do You Dip or Chew Tobacco: Yes ; Second Hand Exposure: Yes ; Tobacco Cessation Education Requested by Patient: No Hx Alcohol Use: Yes Alcohol type: beer and hard liquor Alcohol Intake Frequency: Daily Alcohol Intake Frequency Comment: 10-12 beers daily Hx Substance Use: No Review of Systems Review of Systems: All systems reviewed & are unremarkable except as noted in HPI & below Physical Exam Physical Exam: Constitutional: WD/WN, vitals as above, NAD, sitting up in bed, pleasant, conversing easily Head: Normocephalic, Atraumatic Eyes: PERRL, conjunctivae normal, anicteric sclerae ENMT: external ear and nose normal, B/L TM good landmarks, minimal fluid posteriorly, noninfected, oropharynx normal Neck: trachea midline, no thyromegaly normal visual inspection Respiratory: normal respiratory effort, lungs clear to auscultation, no wheeze, rales, rhonchi. Normal insp/exp effort, no accessory muscle use Cardiovascular: IRR/IRR, no murmur, no edema Vessels: no JVD or carotid bruit Chest: normal inspection of chest Abdomen: normal bowel sounds, soft, nontender, no hepatosplenomegaly Musculoskeletal: no cyanosis or clubbing, extremities motor strength 5/5 Skin: no rashes, warm and dry normal turgor Neurologic: PERRL, EOMI, accommodation nl, no face palsy, no dysarthria CN's II-XI intact bilaterally and moves all extremities Psychiatric: A+Ox3, euthymic affect Lymphatic: no cervical or axillary lymphadenopathy : deferred Results & Data Results & Data ([facility]) Vital Signs (Past 12 Hours) Vital Signs Temp Pulse Resp BP Pulse Ox 05/17/19 15:30 112 H 16 122/95 05/17/19 15:15 118 H 19 122/69 05/17/19 15:00 124 H 13 149/80 H 05/17/19 14:45 120 H 17 135/80 05/17/19 14:32 134 H 20 164/89 H 05/17/19 14:31 172 H 25 H 05/17/19 14:15 159 H 20 05/17/19 14:00 177 H 17 05/17/19 13:56 165 H 15 138/81 05/17/19 13:53 154 H 18 05/17/19 13:42 36.5 C 85 20 151/105 H 97 Laboratory Results Short CBC 05/17/19 05/17/19 05/17/19 Range/Units 14:10 14:10 14:10 WBC 8.40 (4.8-10.8) K/uL RBC 5.59 (4.7-6.1) M/uL Hgb 17.8 (14.0-18.0) g/dL Hct 50.1 (42-52) % MCV 89.6 (80-100) fL MCH 31.8 (25-34) pg MCHC 35.5 (32-36) g/dL RDW Std Deviation 41.3 (36.4-46.3) fL RDW Coeff of Freedom 12.7 (11.5-14.5) % Plt Count 378 (130-400) K/uL MPV 10.7 H (7.4-10.4) fL Immature Gran % (Auto) 0.1 % Neut % (Auto) 54.9 % Lymph % (Auto) 33.6 % [place] % (Auto) 7.3 % Eos % (Auto) 3.9 % Baso % (Auto) 0.2 % Immature Gran # (Auto) 0.01 (0.00-0.02) K/uL Neut # (Auto) 4.61 (1.4-6.5) K/uL Lymph # (Auto) 2.82 (1.2-3.4) K/uL [place] # (Auto) 0.61 H (0.11-0.59) K/uL Eos # (Auto) 0.33 (0-0.5) K/uL Baso # (Auto) 0.02 (0-0.2) K/uL PT 10.4 (9.0-12.0) Seconds INR 1.0 (0.9-1.1) APTT 30.2 (21.0-31.0) Seconds PTT Ratio 1.1 Sodium 137 (136-145) mmol/L Potassium 4.2 (3.5-5.1) mmol/L Chloride 107 (98-107) mmol/L Carbon Dioxide 24 (21-32) mmol/L Anion Gap 7.0 (3-11) BUN 8 (7-18) mg/dl Creatinine 1.00 (0.6-1.4) mg/dl Est Cr Clr Drug Dosing 125.5 ml/min Est GFR ( Amer) 113.3 Est GFR (Non-Af Amer) 97.8 BUN/Creatinine Ratio 8.0 L (10-20) Glucose 110 H (70-99) mg/dl Calcium 9.3 (8.5-10.1) mg/dl Total Bilirubin 0.4 (0.2-1) mg/dl AST 19 (15-37) U/L ALT 35 (12-78) U/L Alkaline Phosphatase 83 (45-117) U/L Troponin I < 0.015 (0-0.045) ng/ml Total Protein 7.5 (6.4-8.2) gm/dl Albumin 4.0 (3.4-5.0) gm/dl Globulin 3.5 (2.5-4.0) gm/dl Albumin/Globulin Ratio 1.1 (0.9-2) Lipase 112 (73-393) U/L TSH 0.884 (0.300-4.500) uIu/ml Specimen Hemolysis Urine Color Urine Appearance (Clear) Urine pH (4.5-7.5) Ur Specific [place] (1.000-1.030) Urine Protein (Negative) Urine Glucose (UA) (Negative) Urine Ketones (Negative) Urine Blood (Negative) Urine Nitrite (Negative) Urine Bilirubin (Negative) Urine Urobilinogen (Negative) Ur Leukocyte Esterase (Negative) 05/17/19 Range/Units 14:30 WBC (4.8-10.8) K/uL RBC (4.7-6.1) M/uL Hgb (14.0-18.0) g/dL Hct (42-52) % MCV (80-100) fL MCH (25-34) pg MCHC (32-36) g/dL RDW Std Deviation (36.4-46.3) fL RDW Coeff of Freedom (11.5-14.5) % Plt Count (130-400) K/uL MPV (7.4-10.4) fL Immature Gran % (Auto) % Neut % (Auto) % Lymph % (Auto) % [place] % (Auto) % Eos % (Auto) % Baso % (Auto) % Immature Gran # (Auto) (0.00-0.02) K/uL Neut # (Auto) (1.4-6.5) K/uL Lymph # (Auto) (1.2-3.4) K/uL [place] # (Auto) (0.11-0.59) K/uL Eos # (Auto) (0-0.5) K/uL Baso # (Auto) (0-0.2) K/uL PT (9.0-12.0) Seconds INR (0.9-1.1) APTT (21.0-31.0) Seconds PTT Ratio Sodium (136-145) mmol/L Potassium (3.5-5.1) mmol/L Chloride (98-107) mmol/L Carbon Dioxide (21-32) mmol/L Anion Gap (3-11) BUN (7-18) mg/dl Creatinine (0.6-1.4) mg/dl Est Cr Clr Drug Dosing ml/min Est GFR ( Amer) Est GFR (Non-Af Amer) BUN/Creatinine Ratio (10-20) Glucose (70-99) mg/dl Calcium (8.5-10.1) mg/dl Total Bilirubin (0.2-1) mg/dl AST (15-37) U/L ALT (12-78) U/L Alkaline Phosphatase (45-117) U/L Troponin I (0-0.045) ng/ml Total Protein (6.4-8.2) gm/dl Albumin (3.4-5.0) gm/dl Globulin (2.5-4.0) gm/dl Albumin/Globulin Ratio (0.9-2) Lipase (73-393) U/L TSH (0.300-4.500) uIu/ml Specimen Hemolysis Urine Color Yellow Urine Appearance Clear (Clear) Urine pH 6.0 (4.5-7.5) Ur Specific [place] 1.009 (1.000-1.030) Urine Protein Negative (Negative) Urine Glucose (UA) Negative (Negative) Urine Ketones Negative (Negative) Urine Blood Negative (Negative) Urine Nitrite Negative (Negative) Urine Bilirubin Negative (Negative) Urine Urobilinogen Negative (Negative) Ur Leukocyte Esterase Negative (Negative) BMP 05/17/19 14:10 Sodium 137 Potassium 4.2 Chloride 107 Carbon Dioxide 24 BUN 8 Creatinine 1.00 Glucose 110 H Calcium 9.3 Cardiac Enzymes 05/17/19 Range/Units 14:10 Troponin I < 0.015 (0-0.045) ng/ml Liver Function 05/17/19 Range/Units 14:10 Total Bilirubin 0.4 (0.2-1) mg/dl AST 19 (15-37) U/L ALT 35 (12-78) U/L Alkaline Phosphatase 83 (45-117) U/L Albumin 4.0 (3.4-5.0) gm/dl Urine 05/17/19 Range/Units 14:30 Urine Color Yellow Urine Appearance Clear (Clear) Urine pH 6.0 (4.5-7.5) Ur Specific [place] 1.009 (1.000-1.030) Urine Protein Negative (Negative) Urine Glucose (UA) Negative (Negative) Diagnostic Findings CXR: IMPRESSION: 1. No acute cardiopulmonary disease. Medications Administered Diltiazem HCl 125 mg/ Dextrose 125 mls @ 5 mls/hr IV .Q24H DRU; Protocol Stop: 06/16/19 14:14 Last Titration: 05/17/19 15:33 Dose: 10 mg/hr, 10 mls/hr Documented by: [id number] Cosigned by: [id number] Admin: 05/17/19 14:30 Dose: 5 mg/hr, 5 mls/hr Documented by: [id number] Cosigned by: [id number] Discontinued Medications Diltiazem HCl (Cardizem) 10 mg IV NOW STA Stop: 05/17/19 14:13 Last Admin: 05/17/19 14:30 Dose: 10 mg Documented by: [id number] Cosigned by: [id number] Miscellaneous () 1 ea N/A NOW STA Stop: 05/17/19 14:13 Last Admin: 05/17/19 14:31 Dose: Not Given Documented by: [id number] ECG Rate (beats per minute): 114 Rhythm: atrial fibrillation Findings: + PVC Code Status & VTE Plan Code Status Full Code VTE Prophylaxis Plan VTE Prophylaxis will be ordered: Yes Supervising Physician Co-Signing Physician Notes ATTENDING ADDENDUM : presented with symptomatic Afib RVR no prior hx admitted to tele cont IV Cardizdm gtt ( started on tele ) increased dose of beta jaky IV heparin cardiology eval ETOH ABUSE : drinks heavily last alcohol drink was last night > 6 beers blood ETOH level , urine tox screen ordered ETOH withdrawl protocol with PRN IV heparin ordered pt seen and examined with Cara Andrade PA-C please see her further documentation for detail info Suzanna Cordova
[2019-05-17] MEDS ORDERED: HEPARIN SOD 5,000 UNIT/0.5 ML VIAL ONE (17:25)
[2019-05-17] MEDS ORDERED: HEPARIN 25000 UNIT/500 ML D5W IV ONE (17:25)
[2019-05-17 17:53] LABS: Potassium 4.6 mmol/L (3.5-5.1)
[2019-05-17 17:54] LABS: Magnesium 2.3 mg/dl (1.8-2.4)
[2019-05-17 18:08] LABS: Amphetamines+Metham, Urine Neg (Neg); Barbiturates, Urine Neg (Neg); Benzodiazepine, Urine Neg (Neg); Cocaine, Urine Neg (Neg); MDMA (Ecstacy), Urine Neg (Neg); Methadone, Urine Neg (Neg); Opiate, Urine Neg (Neg); Phencyclidine, Urine Neg (Neg)
[2019-05-17] MEDS ORDERED: OXYCODONE/ACETAMINOPHEN 5mg/325mg TAB PO PRN (18:09)
[2019-05-17] MEDS ORDERED: ALUMINUM/MAGNESIUM SUSP 30 ML UDC PO PRN (18:09)
[2019-05-17] MEDS ORDERED: ONDANSETRON INJ 2 MG/ML 2 ML VIAL IV PRN (18:09)
[2019-05-17] MEDS ORDERED: LORazepam 1 MG TAB PO PRN (18:09)
[2019-05-17] MEDS ORDERED: MAGNESIUM HYDROXIDE SUSP 30 ML UDC PO PRN (18:09)
[2019-05-17] MEDS ORDERED: NITROGLYCERIN SL 0.4 MG/TAB TAB SL PRN (18:09)
[2019-05-17] MEDS ORDERED: GABAPENTIN 1200MG ALCOHOL WITHDRAWAL LOAD PO STA (18:09)
[2019-05-17] MEDS ORDERED: POLYETHYLENE (MIRALAX) 17 GM PACK PO PRN (18:09)
[2019-05-17] MEDS ORDERED: LORATADINE 10 MG TAB PO PRN ×2 (18:09)
[2019-05-17] MEDS ORDERED: ACETAMINOPHEN 325 MG TAB PO PRN (18:09)
[2019-05-17] MEDS: HEPARIN SODIUM/DEXTROSE 25,000 UNITS/500 ML BAG IV SCH (18:48)
[2019-05-17] MEDS ORDERED: AMOXICILLIN/CLAVULANATE 875 MG TAB PO SCH (19:00)
[2019-05-17] MEDS: THIAMINE HCL 100 MG TAB PO SCH (19:37)
[2019-05-17] MEDS: FOLIC ACID 1 MG TAB PO SCH (19:38)
[2019-05-17] MEDS ORDERED: GABAPENTIN 600 MG TAB PO SCH (20:00)
[2019-05-17] MEDS: METOPROLOL TARTRATE 25 MG TAB PO SCH ×2 (20:13→21:49)
[2019-05-17] MEDS: cefUROXime axetil 500 MG TAB PO SCH (20:14)
[2019-05-17] MEDS: NICOTINE 21 MG/24 HR TDSY TD SCH (22:29)
[2019-05-18 00:13] LABS: Partial Thromboplastin Ratio 3.3
[2019-05-18 00:15] LABS: Partial Thromboplastin Time 92.5 Seconds (21.0-31.0)
[2019-05-18 01:43] LABS: Hematocrit (blood only) 48.6 % (42-52); Mean Corpuscular Volume 88.7 fL (80-100); Mean Platelet Volume 10.8 fL (7.4-10.4); Platelet Count 378 K/uL (130-400); RDW Coefficient of Variation 12.9 % (11.5-14.5); RDW Standard Deviation 41.6 fL (36.4-46.3); Red Blood Count 5.48 M/uL (4.7-6.1); White Blood Count 9.49 K/uL (4.8-10.8)
[2019-05-18 02:19] LABS: Blood Urea Nitrogen 11 mg/dl (7-18); Calcium 8.7 mg/dl (8.5-10.1); Carbon Dioxide 23 mmol/L (21-32); Chloride 108 mmol/L (98-107); Creatinine Clr Calc Pharmacy 137.9 ml/min; Est GFR (Non-African American) 109.6; Glucose 119 mg/dl (70-99); Potassium 3.7 mmol/L (3.5-5.1); Sodium 138 mmol/L (136-145); Troponin I < 0.015 ng/ml (0-0.045)
[2019-05-18] MEDS: GABAPENTIN 600 MG TAB PO SCH ×3 (05:20→12:21)
[2019-05-18] MEDS: METOPROLOL TARTRATE 25 MG TAB PO SCH ×2 (05:20→12:17)
[2019-05-18 06:04] LABS: Estimated Average Glucose 111 mg/dl; Hemoglobin A1C 5.5 % (4.5-5.6)
[2019-05-18] MEDS: NICOTINE 21 MG/24 HR TDSY TD SCH (07:50)
[2019-05-18] MEDS: THIAMINE HCL 100 MG TAB PO SCH (07:50)
[2019-05-18] MEDS: cefUROXime axetil 500 MG TAB PO SCH (07:50)
[2019-05-18] MEDS: FOLIC ACID 1 MG TAB PO SCH (07:50)
[2019-05-18] MEDS ORDERED: TELMISARTAN 40 MG TAB PO SCH (09:00)
[2019-05-18] MEDS ORDERED: ASPIRIN 81 MG ECTAB PO SCH (09:00)
[2019-05-18] MEDS ORDERED: OMEGA-3 (PURIFIED FISH OIL) 1 GM CAP PO SCH (09:00)
--- NOTE | 2019-05-18 09:08 | Hospitalist Progress Note ---
Date of Service May 18, 2019 Assessment & Plan (1) Atrial fibrillation with rapid ventricular response: Pt with symptomatic atrial fib that started at 11:45 a.m. 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 Patient counseled on alcohol, tobacco and caffeine cessation, and regular sleep pattern importance stopped cardizem gtt We will stop IV heparin, start Eliquis Cardiology evaluated patient, recommend to continue home dose of metoprolol succinate, 25 mg daily Patient will need to follow-up with cardiology as outpatient (2) HTN (hypertension): Pt on metoprolol and telmisartan as outpt Pt telmisartan increased on 05/15 from 25mg daily to 40mg daily due to elevated BP monitor closely (3) Alcohol abuse: pt admits to drinking 10-12 light beers daily encourage alcohol cessation start Thiamine and Folic acid daily possibly contributing to arrhythmia AWSS protocol and gabapentin protocol initiated prn lorazepam for s/sx of withdrawal Pt denies any hx of etoh withdrawal No issues overnight reported (4) Tobacco abuse: encourage smoking cessation (5) Left ear pain: Pt seen by PCP prior to admission for L ear pain and swollen lymph node prescribed Zpack - says he started taking it and still has some left at home complete antibiotic as outpt (6) DVT prophylaxis: IV Heparin - switch to eliquis today Disposition: home Follow up: PCP Dr. Ellington upon discharge Follow up : Cardiology Admission and Anticipated Discharge Date Admission Date: May 17, 2019 Subjective Patient sitting up in bed, in no acute distress. He converted to normal sinus rhythm overnight. Says that he could feel when it happened. Currently still on IV heparin, plan to switch to Eliquis. Currently denies any chest pain, palpitations, shortness of breath, abdominal pain, nausea vomiting, loose stools, dizziness or lightheadedness. Patient was evaluated by cardiology earlier this morning, plan to follow-up with cardiology as outpatient, and start pt on Eliquis. Continue home dose of metoprolol. Review of Systems Review of Systems: All systems reviewed & are unremarkable except as noted in HPI & below Constitutional: no fever and no chills Respiratory: no cough, no dyspnea and no pain on inspiration Cardiovascular: no chest pain, no palpitations and no edema Gastrointestinal: no abdominal pain, no nausea and no vomiting Physical Exam Physical Exam: Constitutional: young male sitting up in bed, pleasant, conversing easily HEENT: Normocephalic, Atraumatic, PERRL, conjunctivae normal, anicteric sclerae, oropharynx normal Neck: trachea midline, no thyromegaly normal visual inspection Respiratory: normal respiratory effort, lungs clear to auscultation, no wheeze, rales, rhonchi. Normal insp/exp effort, no accessory muscle use Cardiovascular: RRR no murmur, no edema Vessels: no JVD or carotid bruit Chest: normal inspection of chest Abdomen: normal bowel sounds, soft, nontender, nondistended Musculoskeletal: no cyanosis or clubbing, extremities motor strength 5/5 Skin: no rashes, warm and dry normal turgor Neurologic: PERRL, EOMI, accommodation nl, no face palsy, no dysarthria CN's II-XI intact bilaterally and moves all extremities Psychiatric: A+Ox3, euthymic affect Results & Data Results & Data ([facility]) Vital Signs (Past 12 Hours) Vital Signs Temp Pulse Pulse Pulse Resp BP BP 05/18/19 08:04 36.5 C 78 20 137/91 05/18/19 07:00 77 05/18/19 03:59 37.0 C 88 18 138/87 05/18/19 00:45 82 05/17/19 23:55 36.5 C 82 18 105/80 Pulse Ox 05/18/19 08:04 93 05/18/19 07:00 05/18/19 03:59 95 05/18/19 00:45 05/17/19 23:55 96 Laboratory Results 05/18/19 05/18/19 05/18/19 Range/Units 06:46 01:31 01:31 WBC 9.49 (4.8-10.8) K/uL RBC 5.48 (4.7-6.1) M/uL Hgb 17.0 (14.0-18.0) g/dL Hct 48.6 (42-52) % MCV 88.7 (80-100) fL MCH 31.0 (25-34) pg MCHC 35.0 (32-36) g/dL RDW Std Deviation 41.6 (36.4-46.3) fL RDW Coeff of [place] 12.9 (11.5-14.5) % Plt Count 378 (130-400) K/uL MPV 10.8 H (7.4-10.4) fL Immature Gran % (Auto) % Neut % (Auto) % Lymph % (Auto) % [place] % (Auto) % Eos % (Auto) % Baso % (Auto) % Immature Gran # (Auto) (0.00-0.02) K/uL Neut # (Auto) (1.4-6.5) K/uL Lymph # (Auto) (1.2-3.4) K/uL [place] # (Auto) (0.11-0.59) K/uL Eos # (Auto) (0-0.5) K/uL Baso # (Auto) (0-0.2) K/uL PT (9.0-12.0) Seconds INR (0.9-1.1) APTT 55.0 H* (21.0-31.0) Seconds PTT Ratio 2.0 Sodium (136-145) mmol/L Potassium (3.5-5.1) mmol/L Chloride (98-107) mmol/L Carbon Dioxide (21-32) mmol/L Anion Gap (3-11) BUN (7-18) mg/dl Creatinine (0.6-1.4) mg/dl Est Cr Clr Drug Dosing ml/min Est GFR ( Amer) Est GFR (Non-Af Amer) BUN/Creatinine Ratio (10-20) Glucose (70-99) mg/dl Estimat Average Glucose 111 mg/dl Hemoglobin A1c 5.5 (4.5-5.6) % Calcium (8.5-10.1) mg/dl Magnesium (1.8-2.4) mg/dl Total Bilirubin (0.2-1) mg/dl AST (15-37) U/L ALT (12-78) U/L Alkaline Phosphatase (45-117) U/L Troponin I (0-0.045) ng/ml Total Protein (6.4-8.2) gm/dl Albumin (3.4-5.0) gm/dl Globulin (2.5-4.0) gm/dl Albumin/Globulin Ratio (0.9-2) Lipase (73-393) U/L TSH (0.300-4.500) uIu/ml Specimen Hemolysis Urine Color Urine Appearance (Clear) Urine pH (4.5-7.5) Ur Specific [place] (1.000-1.030) Urine Protein (Negative) Urine Glucose (UA) (Negative) Urine Ketones (Negative) Urine Blood (Negative) Urine Nitrite (Negative) Urine Bilirubin (Negative) Urine Urobilinogen (Negative) Ur Leukocyte Esterase (Negative) Urine Opiates Screen (Neg) Ur Methadone, Qual (Neg) Urine Barbiturates (Neg) Ur Phencyclidine (PCP) (Neg) U Amphetamin/Meth Scrn (Neg) MDMA (Ecstasy) Screen (Neg) U Benzodiazepines Scrn (Neg) Ur Cocaine Metabolite (Neg) U Marijuana (THC) Screen (Neg) Ethyl Alcohol mg/dL 05/18/19 05/17/19 05/17/19 Range/Units 01:31 23:40 20:22 WBC (4.8-10.8) K/uL RBC (4.7-6.1) M/uL Hgb (14.0-18.0) g/dL Hct (42-52) % MCV (80-100) fL MCH (25-34) pg MCHC (32-36) g/dL RDW Std Deviation (36.4-46.3) fL RDW Coeff of Freedom (11.5-14.5) % Plt Count (130-400) K/uL MPV (7.4-10.4) fL Immature Gran % (Auto) % Neut % (Auto) % Lymph % (Auto) % [place] % (Auto) % Eos % (Auto) % Baso % (Auto) % Immature Gran # (Auto) (0.00-0.02) K/uL Neut # (Auto) (1.4-6.5) K/uL Lymph # (Auto) (1.2-3.4) K/uL [place] # (Auto) (0.11-0.59) K/uL Eos # (Auto) (0-0.5) K/uL Baso # (Auto) (0-0.2) K/uL PT (9.0-12.0) Seconds INR (0.9-1.1) APTT 92.5 H* (21.0-31.0) Seconds PTT Ratio 3.3 Sodium 138 (136-145) mmol/L Potassium 3.7 D (3.5-5.1) mmol/L Chloride 108 H (98-107) mmol/L Carbon Dioxide 23 (21-32) mmol/L Anion Gap 7.0 (3-11) BUN 11 (7-18) mg/dl Creatinine 0.91 (0.6-1.4) mg/dl Est Cr Clr Drug Dosing 137.9 ml/min Est GFR ( Amer) 127.0 Est GFR (Non-Af Amer) 109.6 BUN/Creatinine Ratio 12.0 (10-20) Glucose 119 H (70-99) mg/dl Estimat Average Glucose mg/dl Hemoglobin A1c (4.5-5.6) % Calcium 8.7 (8.5-10.1) mg/dl Magnesium (1.8-2.4) mg/dl Total Bilirubin (0.2-1) mg/dl AST (15-37) U/L ALT (12-78) U/L Alkaline Phosphatase (45-117) U/L Troponin I < 0.015 < 0.015 (0-0.045) ng/ml Total Protein (6.4-8.2) gm/dl Albumin (3.4-5.0) gm/dl Globulin (2.5-4.0) gm/dl Albumin/Globulin Ratio (0.9-2) Lipase (73-393) U/L TSH (0.300-4.500) uIu/ml Specimen Hemolysis Urine Color Urine Appearance (Clear) Urine pH (4.5-7.5) Ur Specific [place] (1.000-1.030) Urine Protein (Negative) Urine Glucose (UA) (Negative) Urine Ketones (Negative) Urine Blood (Negative) Urine Nitrite (Negative) Urine Bilirubin (Negative) Urine Urobilinogen (Negative) Ur Leukocyte Esterase (Negative) Urine Opiates Screen (Neg) Ur Methadone, Qual (Neg) Urine Barbiturates (Neg) Ur Phencyclidine (PCP) (Neg) U Amphetamin/Meth Scrn (Neg) MDMA (Ecstasy) Screen (Neg) U Benzodiazepines Scrn (Neg) Ur Cocaine Metabolite (Neg) U Marijuana (THC) Screen (Neg) Ethyl Alcohol mg/dL 05/17/19 05/17/19 05/17/19 Range/Units 17:59 17:10 17:05 WBC (4.8-10.8) K/uL RBC (4.7-6.1) M/uL Hgb (14.0-18.0) g/dL Hct (42-52) % MCV (80-100) fL MCH (25-34) pg MCHC (32-36) g/dL RDW Std Deviation (36.4-46.3) fL RDW Coeff of [place] (11.5-14.5) % Plt Count (130-400) K/uL MPV (7.4-10.4) fL Immature Gran % (Auto) % Neut % (Auto) % Lymph % (Auto) % [place] % (Auto) % Eos % (Auto) % Baso % (Auto) % Immature Gran # (Auto) (0.00-0.02) K/uL Neut # (Auto) (1.4-6.5) K/uL Lymph # (Auto) (1.2-3.4) K/uL [place] # (Auto) (0.11-0.59) K/uL Eos # (Auto) (0-0.5) K/uL Baso # (Auto) (0-0.2) K/uL PT (9.0-12.0) Seconds INR (0.9-1.1) APTT (21.0-31.0) Seconds PTT Ratio Sodium (136-145) mmol/L Potassium Cancelled (3.5-5.1) mmol/L Chloride (98-107) mmol/L Carbon Dioxide (21-32) mmol/L Anion Gap (3-11) BUN (7-18) mg/dl Creatinine (0.6-1.4) mg/dl Est Cr Clr Drug Dosing ml/min Est GFR ( Amer) Est GFR (Non-Af Amer) BUN/Creatinine Ratio (10-20) Glucose (70-99) mg/dl Estimat Average Glucose mg/dl Hemoglobin A1c (4.5-5.6) % Calcium (8.5-10.1) mg/dl Magnesium Cancelled (1.8-2.4) mg/dl Total Bilirubin (0.2-1) mg/dl AST (15-37) U/L ALT (12-78) U/L Alkaline Phosphatase (45-117) U/L Troponin I (0-0.045) ng/ml Total Protein (6.4-8.2) gm/dl Albumin (3.4-5.0) gm/dl Globulin (2.5-4.0) gm/dl Albumin/Globulin Ratio (0.9-2) Lipase (73-393) U/L TSH (0.300-4.500) uIu/ml Specimen Hemolysis Urine Color Urine Appearance (Clear) Urine pH (4.5-7.5) Ur Specific [place] (1.000-1.030) Urine Protein (Negative) Urine Glucose (UA) (Negative) Urine Ketones (Negative) Urine Blood (Negative) Urine Nitrite (Negative) Urine Bilirubin (Negative) Urine Urobilinogen (Negative) Ur Leukocyte Esterase (Negative) Urine Opiates Screen (Neg) Ur Methadone, Qual (Neg) Urine Barbiturates (Neg) Ur Phencyclidine (PCP) (Neg) U Amphetamin/Meth Scrn (Neg) MDMA (Ecstasy) Screen (Neg) U Benzodiazepines Scrn (Neg) Ur Cocaine Metabolite (Neg) U Marijuana (THC) Screen (Neg) Ethyl Alcohol mg/dL < 3.0 Cancelled 05/17/19 05/17/19 05/17/19 Range/Units 14:30 14:30 14:10 WBC (4.8-10.8) K/uL RBC (4.7-6.1) M/uL Hgb (14.0-18.0) g/dL Hct (42-52) % MCV (80-100) fL MCH (25-34) pg MCHC (32-36) g/dL RDW Std Deviation (36.4-46.3) fL RDW Coeff of [place] (11.5-14.5) % Plt Count (130-400) K/uL MPV (7.4-10.4) fL Immature Gran % (Auto) % Neut % (Auto) % Lymph % (Auto) % [place] % (Auto) % Eos % (Auto) % Baso % (Auto) % Immature Gran # (Auto) (0.00-0.02) K/uL Neut # (Auto) (1.4-6.5) K/uL Lymph # (Auto) (1.2-3.4) K/uL [place] # (Auto) (0.11-0.59) K/uL Eos # (Auto) (0-0.5) K/uL Baso # (Auto) (0-0.2) K/uL PT (9.0-12.0) Seconds INR (0.9-1.1) APTT (21.0-31.0) Seconds PTT Ratio Sodium (136-145) mmol/L Potassium 4.6 (3.5-5.1) mmol/L Chloride (98-107) mmol/L Carbon Dioxide (21-32) mmol/L Anion Gap (3-11) BUN (7-18) mg/dl Creatinine (0.6-1.4) mg/dl Est Cr Clr Drug Dosing ml/min Est GFR ( Amer) Est GFR (Non-Af Amer) BUN/Creatinine Ratio (10-20) Glucose (70-99) mg/dl Estimat Average Glucose mg/dl Hemoglobin A1c (4.5-5.6) % Calcium (8.5-10.1) mg/dl Magnesium 2.3 (1.8-2.4) mg/dl Total Bilirubin (0.2-1) mg/dl AST (15-37) U/L ALT (12-78) U/L Alkaline Phosphatase (45-117) U/L Troponin I (0-0.045) ng/ml Total Protein (6.4-8.2) gm/dl Albumin (3.4-5.0) gm/dl Globulin (2.5-4.0) gm/dl Albumin/Globulin Ratio (0.9-2) Lipase (73-393) U/L TSH (0.300-4.500) uIu/ml Specimen Hemolysis Urine Color Yellow Urine Appearance Clear (Clear) Urine pH 6.0 (4.5-7.5) Ur Specific [place] 1.009 (1.000-1.030) Urine Protein Negative (Negative) Urine Glucose (UA) Negative (Negative) Urine Ketones Negative (Negative) Urine Blood Negative (Negative) Urine Nitrite Negative (Negative) Urine Bilirubin Negative (Negative) Urine Urobilinogen Negative (Negative) Ur Leukocyte Esterase Negative (Negative) Urine Opiates Screen Neg (Neg) Ur Methadone, Qual Neg (Neg) Urine Barbiturates Neg (Neg) Ur Phencyclidine (PCP) Neg (Neg) U Amphetamin/Meth Scrn Neg (Neg) MDMA (Ecstasy) Screen Neg (Neg) U Benzodiazepines Scrn Neg (Neg) Ur Cocaine Metabolite Neg (Neg) U Marijuana (THC) Screen Neg (Neg) Ethyl Alcohol mg/dL 05/17/19 05/17/19 05/17/19 Range/Units 14:10 14:10 14:10 WBC 8.40 (4.8-10.8) K/uL RBC 5.59 (4.7-6.1) M/uL Hgb 17.8 (14.0-18.0) g/dL Hct 50.1 (42-52) % MCV 89.6 (80-100) fL MCH 31.8 (25-34) pg MCHC 35.5 (32-36) g/dL RDW Std Deviation 41.3 (36.4-46.3) fL RDW Coeff of [place] 12.7 (11.5-14.5) % Plt Count 378 (130-400) K/uL MPV 10.7 H (7.4-10.4) fL Immature Gran % (Auto) 0.1 % Neut % (Auto) 54.9 % Lymph % (Auto) 33.6 % [place] % (Auto) 7.3 % Eos % (Auto) 3.9 % Baso % (Auto) 0.2 % Immature Gran # (Auto) 0.01 (0.00-0.02) K/uL Neut # (Auto) 4.61 (1.4-6.5) K/uL Lymph # (Auto) 2.82 (1.2-3.4) K/uL [place] # (Auto) 0.61 H (0.11-0.59) K/uL Eos # (Auto) 0.33 (0-0.5) K/uL Baso # (Auto) 0.02 (0-0.2) K/uL PT 10.4 (9.0-12.0) Seconds INR 1.0 (0.9-1.1) APTT 30.2 (21.0-31.0) Seconds PTT Ratio 1.1 Sodium 137 (136-145) mmol/L Potassium 4.2 (3.5-5.1) mmol/L Chloride 107 (98-107) mmol/L Carbon Dioxide 24 (21-32) mmol/L Anion Gap 7.0 (3-11) BUN 8 (7-18) mg/dl Creatinine 1.00 (0.6-1.4) mg/dl Est Cr Clr Drug Dosing 125.5 ml/min Est GFR ( Amer) 113.3 Est GFR (Non-Af Amer) 97.8 BUN/Creatinine Ratio 8.0 L (10-20) Glucose 110 H (70-99) mg/dl Estimat Average Glucose mg/dl Hemoglobin A1c (4.5-5.6) % Calcium 9.3 (8.5-10.1) mg/dl Magnesium (1.8-2.4) mg/dl Total Bilirubin 0.4 (0.2-1) mg/dl AST 19 (15-37) U/L ALT 35 (12-78) U/L Alkaline Phosphatase 83 (45-117) U/L Troponin I < 0.015 (0-0.045) ng/ml Total Protein 7.5 (6.4-8.2) gm/dl Albumin 4.0 (3.4-5.0) gm/dl Globulin 3.5 (2.5-4.0) gm/dl Albumin/Globulin Ratio 1.1 (0.9-2) Lipase 112 (73-393) U/L TSH 0.884 (0.300-4.500) uIu/ml Specimen Hemolysis Urine Color Urine Appearance (Clear) Urine pH (4.5-7.5) Ur Specific [place] (1.000-1.030) Urine Protein (Negative) Urine Glucose (UA) (Negative) Urine Ketones (Negative) Urine Blood (Negative) Urine Nitrite (Negative) Urine Bilirubin (Negative) Urine Urobilinogen (Negative) Ur Leukocyte Esterase (Negative) Urine Opiates Screen (Neg) Ur Methadone, Qual (Neg) Urine Barbiturates (Neg) Ur Phencyclidine (PCP) (Neg) U Amphetamin/Meth Scrn (Neg) MDMA (Ecstasy) Screen (Neg) U Benzodiazepines Scrn (Neg) Ur Cocaine Metabolite (Neg) U Marijuana (THC) Screen (Neg) Ethyl Alcohol mg/dL Medications Administered Current Inpatient Medications Acetaminophen (Tylenol) 650 mg PO Q4H PRN PRN Reason: Pain or Fever Stop: 06/16/19 18:08 Last Admin: 05/18/19 07:55 Dose: 650 mg Documented by: Al Hydrox/Mg Hydrox/Simethicone (Maalox) 15 ml PO Q4H PRN PRN Reason: Dyspepsia Stop: 06/16/19 18:08 Aspirin (Ecotrin Ectab) 81 mg PO [facility] Stop: 06/17/19 08:59 Last Admin: 05/18/19 07:49 Dose: 81 mg Documented by: Cefuroxime Axetil (Ceftin) 500 mg PO BID [facility]; Protocol Stop: 05/27/19 20:59 Last Admin: 05/18/19 07:50 Dose: 500 mg Documented by: Fish Oil ([place]-3 (Purified Fish Oil)) 1 gm PO [facility] Stop: 06/17/19 08:59 Last Admin: 05/18/19 07:50 Dose: 1 gm Documented by: Folic [facility] (F[facility]vite) [facility] Stop: 06/16/19 18:08 Last Admin: 05/18/19 07:50 Dose: 1 mg Documented by: Gabapentin (Neurontin) 600 mg PO Q6H [facility] Stop: 05/18/19 12:01 Last Admin: 05/18/19 05:20 Dose: 600 mg Documented by: Gabapentin (Neurontin) 600 mg PO Q8H [facility] Stop: 05/19/19 14:01 Gabapentin (Neurontin) 600 mg PO Q12H [facility] Stop: 05/20/19 12:01 Gabapentin (Neurontin) 600 mg PO Q24H [facility] Stop: 05/21/19 12:01 Diltiazem HCl 125 mg/ Dextrose 125 mls @ 10 mls/hr IV .[id number] [facility]; Protocol Stop: 06/16/19 14:14 Last Titration: 05/18/19 05:22 Dose: 0 mg/hr, 0 mls/hr Documented by: Heparin Sodium/Dextrose (Heparin Sodium/Dextrose) 25,000 units in 500 mls @ 28 mls/hr IV .[id number] [facility]; Protocol Stop: 06/16/19 16:44 Last Titration: 04/08/20 07:05 Dose: 1,400 units/hr, 28 mls/hr Documented by: Loratadine (Claritin) 10 mg PO DAILY PRN PRN Reason: Allergy Symptoms Stop: 06/16/19 18:08 Lorazepam (Ativan) 1 mg PO ONE PRN; Protocol PRN Reason: EtoH Withdrawal AWSS 6-10 Magnesium Hydroxide (Milk Of Magnesia) 30 ml PO Q12H PRN PRN Reason: Constipation Stop: 06/16/19 18:08 Metoprolol Tartrate (Lopressor) 25 mg PO Q6H [facility] Stop: 06/16/19 16:59 Last Admin: 05/18/19 05:20 Dose: 25 mg Documented by: Miscellaneous (Remove Nicoderm Patch) 1 ea N/A DAILY@858 [facility] Stop: 06/17/19 08:58 Last Admin: 05/18/19 07:50 Dose: 1 ea Documented by: Nicotine (Nicoderm Cq) 21 mg TD QAM [facility] Stop: 06/16/19 20:09 Last Admin: 05/18/19 07:50 Dose: 21 mg Documented by: Nitroglycerin (Nitrostat) 0.4 mg SL UD PRN PRN Reason: Chest Pain Stop: 06/16/19 18:08 Ondansetron HCl (Zofran) 4 mg IV Q6H PRN PRN Reason: Nausea Stop: 06/16/19 18:08 Oxycodone/Acetaminophen (Percocet 5mg/325mg) 1 tab PO DAILY PRN PRN Reason: Pain Stop: 05/31/19 18:08 Last Admin: 05/18/19 01:01 Dose: 1 tab Documented by: Polyethylene Glycol (Miralax Powder Packet) 17 gm PO DAILY PRN PRN Reason: Constipation Stop: 06/16/19 18:08 Potassium Chloride (Klor-Con M20) 40 meq PO NOW STA Stop: 05/18/19 09:05 Telmisartan (Micardis) 40 mg PO DAILY [facility] Stop: 06/17/19 08:59 Last Admin: 05/18/19 07:49 Dose: 40 mg Documented by: Thiamine HCl (Vitamin B-1) 100 mg PO QAM [facility] Stop: 06/16/19 18:08 Last Admin: 05/18/19 07:50 Dose: 100 mg Documented by:
[2019-05-18] MEDS ORDERED: POTASSIUM CHLORIDE 20 MEQ TABCR PO ONE (09:15)
[2019-05-18] MEDS: HEPARIN SODIUM/DEXTROSE 25,000 UNITS/500 ML BAG IV SCH (09:44)
[2019-05-18] MEDS: dilTIAZem HCL 125 MG in DEXTROSE 5% 100 ML IV SCH (11:10)
[2019-05-18] MEDS ORDERED: APIXABAN 5 MG TABLET PO SCH (11:30)
--- NOTE | 2019-05-18 12:29 | Discharge Summary ---
Date of Service May 18, 2019 Admission HPI Per Admitting Provider This is a 34 year M who has significant past medical history of alcohol abuse, tobacco abuse, PAF, and HTN who presents to ED secondary to, "my heart was doing cart wheels since 11:45am." Of significance patient was hospitalized 07/2017 secondary to new onset A. fib felt secondary to alcohol use, lifestyle, or lack of sleep. He required IV diltiazem bolus and drip with spontaneous conversion. He was discharged home on metoprolol 25 mg daily. He has been compliant with his metoprolol. He has not had a recurrence until this morning at approximately 11:45 AM when he awoke from sleep feeling like his heart was doing cart wheels. He also had associated shortness of breath. 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 He also elicits that he did start azithromycin yesterday prescribed by PCP secondary to left ear pain and left gland swelling. He took 2- 250 mg tablets but did not take any this morning secondary to not feeling well when he woke up. He currently denies any fever, chills, sweats, lightheadedness, dizziness, syncope, chest pain, cough, hemoptysis, nausea, vomiting, abdominal pain. He did have episode of loose bowel this morning attributing to the antibiotic. Overall he denies any sinus congestion, rhinorrhea and his ear pain is much improved today. He denies any close contacts to +covid 19 pts. He has a good appetite. He does drink alcohol daily, having 10-12 light beers last evening. He admits to drinking 10-12 beers daily. He also is a pack per day smoker for 22 years. He denies any illicit drug use. He has no family history of hypertension but denies any history of cardiac arrhythmias or CAD. Admits to his father having a congenital heart defect at . In ED he remained hemodynamically stable but was significantly tachycardic with initial heart rates in the 190s. He was given Cardizem 10 mg IV bolus and started on 5 mg Cardizem drip. Due to consistently elevated heart rates he required up titration to 10 mg with heart rates maintaining in the low 100s. His CBC, CMP were relatively unremarkable. His TSH and troponin WNL. UA negative. CXR no acute abnormality. Admission Exam Per Admitting Provider Constitutional: WD/WN, vitals as above, NAD, sitting up in bed, pleasant, conversing easily Head: Normocephalic, Atraumatic Eyes: PERRL, conjunctivae normal, anicteric sclerae ENMT: external ear and nose normal, B/L TM good landmarks, minimal fluid posteriorly, noninfected, oropharynx normal Neck: trachea midline, no thyromegaly normal visual inspection Respiratory: normal respiratory effort, lungs clear to auscultation, no wheeze, rales, rhonchi. Normal insp/exp effort, no accessory muscle use Cardiovascular: IRR/IRR, no murmur, no edema Vessels: no JVD or carotid bruit Chest: normal inspection of chest Abdomen: normal bowel sounds, soft, nontender, no hepatosplenomegaly Musculoskeletal: no cyanosis or clubbing, extremities motor strength 5/5 Skin: no rashes, warm and dry normal turgor Neurologic: PERRL, EOMI, accommodation nl, no face palsy, no dysarthria CN's II-XI intact bilaterally and moves all extremities Psychiatric: A+Ox3, euthymic affect Lymphatic: no cervical or axillary lymphadenopathy : deferred Principal Diagnosis Atrial fibrillation with rapid ventricular response Discharge Exam Constitutional: young male sitting up in bed, pleasant, conversing easily HEENT: Normocephalic, Atraumatic, PERRL, conjunctivae normal, anicteric sclerae, oropharynx normal Neck: trachea midline, no thyromegaly normal visual inspection Respiratory: normal respiratory effort, lungs clear to auscultation, no wheeze, rales, rhonchi. Normal insp/exp effort, no accessory muscle use Cardiovascular: RRR no murmur, no edema Vessels: no JVD or carotid bruit Chest: normal inspection of chest Abdomen: normal bowel sounds, soft, nontender, nondistended Musculoskeletal: no cyanosis or clubbing, extremities motor strength 5/5 Skin: no rashes, warm and dry normal turgor Neurologic: PERRL, EOMI, accommodation nl, no face palsy, no dysarthria CN's II-XI intact bilaterally and moves all extremities Psychiatric: A+Ox3, euthymic affect Discharge Data Allergies Allergy/AdvReac Type Severity Reaction Status Date / Time No Known Allergies Allergy Verified 05/17/19 14:40 Consultations 05/17/19 16:08 ED Decision to Admit Stat 05/17/19 18:09 Consult Cardiology Routine Hospital Course (1) Atrial fibrillation with rapid ventricular response: Pt with symptomatic atrial fib that started at 11:45 a.m. on 05/16 Converted overnight, currently in normal sinus rhythm,05/18/2019 last echo 2018 WNL TSH and troponin WNL K, Mg level WNL Previous episode, attributed to alcohol use, at that time he was not started on anticoagulation given his low chadsvasc score risk factors include alcohol, tobacco abuse, caffeine use, interrupted sleep/irregular sleep pattern due to hourly shift work Patient counseled on alcohol, tobacco and caffeine cessation, and regular sleep pattern importance stopped cardizem gtt We will stop IV heparin, start Eliquis Cardiology evaluated patient, recommend to continue home dose of metoprolol succinate, 25 mg daily Patient will need to follow-up with cardiology as outpatient (2) HTN (hypertension): Pt on metoprolol and telmisartan as outpt Pt telmisartan increased on 05/15 from 25mg daily to 40mg daily due to elevated BP monitor closely (3) Alcohol abuse: pt admits to drinking 10-12 light beers daily encourage alcohol cessation start Thiamine and Folic acid daily possibly contributing to arrhythmia AWSS protocol and gabapentin protocol initiated prn lorazepam for s/sx of withdrawal Pt denies any hx of etoh withdrawal No issues overnight reported (4) Tobacco abuse: encourage smoking cessation (5) Left ear pain: Pt seen by PCP prior to admission for L ear pain and swollen lymph node prescribed Zpack - says he started taking it and still has some left at home complete antibiotic as outpt (6) DVT prophylaxis: IV Heparin - switch to eliquis today Disposition: home Follow up: PCP Dr. Ellington upon discharge Follow up : Cardiology Total Time Total Time Spent Total Time Spent (In Minutes): 40 Total Time Includes: Examination of the Patient, Discharge Planning, Medication Reconciliation and Communication With Other Providers Discharge Plan Discharge Items Patient Disposition: Home - Self-Care Reason For Visit: RAPID HEART RATE Discharge Diagnosis: Atrial fibrillation with rapid ventricular response Condition on Discharge: Good Activity: As commented below Non-emergency contact: Primary Care Provider and School Fundraising Director Call non-emergency contact if: you have any medication questions and your symptoms worsen Follow-up/Referrals: Kirt Ellington MD [Primary Care Provider] - Diet: Heart Healthy Addtl Attending Provider Instructions: Start taking Eliquis 5 mg twice daily, for anticoagulation. This is to prevent stroke, given your episodes of atrial fibrillation. Continue taking metoprolol succinate 25mg daily, as previously prescribed. You will need to follow-up with cardiology, you will be called about the appointment. Recommend smoking cessation, alcohol use cessation, also recommend not to use caffeinated beverages. Recommend regular sleep. Pending Studies at Discharge: No Stand-Alone Forms: My [facility], Smoking Cessation Medications and DC Order Prescriptions: New folic acid 1 mg Tablet 1 mg PO QAM 30 Days Qty: 30 RF: 0 thiamine HCl (vitamin B1) [Vitamin B-1] 100 mg Tablet 100 mg PO QAM 30 Days Qty: 30 RF: 0 Eliquis 5 mg Tablet 5 mg PO BID 21 Days Qty: 42 RF: 0 aspirin 81 mg Tablet,Delayed Release (Dr/Ec) 81 mg PO QAM 30 Days Qty: 30 RF: 0 Continued ibuprofen 800 mg tablet 800 mg PO TIDM PRN (Reason: Pain) RF: 0 metoprolol succinate 25 mg tablet extended release 24 hr 25 mg PO QAM RF: 0 omega 1-zxa-ehz-fish oil [Fish Oil] 1,000 mg (120 mg-180 mg) Capsule 1 cap PO QAM RF: 0 loratadine [Claritin] 10 mg Tablet 10 mg PO DAILY PRN (Reason: Allergy Symptoms) RF: 0 telmisartan 40 mg tablet 40 mg PO DAILY RF: 0 oxycodone-acetaminophen 5-325 mg tablet 1 tab PO DAILY PRN (Reason: Pain) RF: 0 azithromycin 250 mg tablet 250 mg PO DAILY RF: 0 Discharge Orders: Discharge Order (Routine); Ordered 05/18/19 Ordered By: Adan Richter Admission Data Admit Date/Time: 05/17/19 16:42 Attending Provider: Adan Richter Admit Provider: Suzanna Cordova Primary Care Provider: Kirt Ellington Other Providers: Suzanna Cordova ; Brian Scott ; Isaiah Shahid ; Vaughn Ferrell ; Manav Fair ; Yehuda Rothman ; Henri Nieves ; Yanet Sánchez ; Marya Morgan ; Gilmer Villela
--- NOTE | 2019-05-18 12:45 | Cardiology Consultation ---
Date of Consultation May 18, 2019 Assessment & Plan (1) Atrial fibrillation with rapid ventricular response: The pathophysiology and treatment options for atrial fibrillation were discussed with Mr. Reardon at great lengths. Likely spontaneously converted to normal sinus rhythm on his own. So believe the most prudent course of action at this point will be to continue his current outpatient dose of metoprolol while at the same time starting Eliquis 5 mg p.o. twice daily. The order for which I have already placed in epic to his preferred pharmacy. I will arrange for a 1 week outpatient ZIO patch monitor to evaluate for any asymptomatic episodes of paroxysmal atrial fibrillation. My office will arrange follow-up with me in approximately 1 month He does have a number of triggers for atrial fibrillation including alcohol use, significant caffeine intake, poor sleep schedule and likely dehydration. The need to reduce his triggers were reviewed with him at great lengths. Okay to discharge home from a cardiac standpoint. (2) HTN (hypertension): Stable continue outpatient medical regimen (3) Alcohol abuse: Discussed need for decreased consumption (4) Tobacco abuse: Counseled on the absolute need for smoking cessation History of Present Illness Reason for Consultation: atrial fibrillation with rapid ventricular response Requesting Physician: Dr. Richter Attending Physician: Adan Richter MD History of Present Illness It was my pleasure to see Mr. Louis in consultation today May 18, 2019. He is a very pleasant 34-year-old gentleman who presented to [facility] emergency department on 05/17/2019 with complaints of palpitations. The patient states that he woke up suddenly this a.m. with his heart feeling as though it was doing cart wheels in his chest. He states that this was similar to the episode of atrial fibrillation he had approximately 2 years ago as well as another episode approximately 1 year ago that sentiment to the emergency department. He states he felt his heart beating very very quickly and when he tried to ambulate he became quickly winded and lightheaded. He then presented to the emergency department. Upon arrival he was found to be in A. fib with rapid ventricular response started on a heparin drip and admitted to telemetry after receiving Cardizem boluses for rate control. He spontaneously converted to normal sinus rhythm around 2 AM and states that he did notice a significant change once he converted. He states his symptoms resolved and currently he feels fine. 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 He states that most he may get 4 hours of sleep but in the last 3 days he has not had much sleep at all. He also drinks a significant mount of alcohol anywhere from 6-12 drinks including beer, vodka or whiskey on a regular basis. He states he had about 10 beers the night before this episode. He also drinks coffee all day long without much water. He states that he snores occasionally while sleeping but is not tired during the day and does not require naps. He has been compliant with his medications is not missed any doses of his metoprolol. Past medical history: 1. Paroxysmal atrial fibrillation with a chads vas score of 1 2. Hypertension 3. Tobacco abuse 4. Significant alcohol intake 5. Poor sleep schedule. 6. Status post bilateral shoulder surgeries Allergies Allergy/AdvReac Type Severity Reaction Status Date / Time No Known Allergies Allergy Verified 05/17/19 14:40 Home Medications Home Medications Medication Instructions Recorded Confirmed Type ibuprofen 800 mg PO TIDM PRN 02/26/18 05/17/19 History metoprolol succinate 25 mg PO QAM 02/26/18 05/17/19 History omega 9-gkq-luk-fish oil [Fish Oil] 1 cap PO QAM 02/26/18 05/17/19 History loratadine [Claritin] 10 mg PO DAILY PRN 08/16/18 05/17/19 History azithromycin 250 mg PO DAILY 05/17/19 05/17/19 History oxycodone-acetaminophen 1 tab PO DAILY PRN 05/17/19 05/17/19 History telmisartan 40 mg PO DAILY 05/17/19 05/17/19 History apixaban [Eliquis] 5 mg PO BID 21 Days #42 tab 05/18/19 Rx aspirin 81 mg PO QAM 30 Days #30 tab 05/18/19 Rx folic acid 1 mg PO QAM 30 Days #30 tab 05/18/19 Rx thiamine HCl (vitamin B1) [Vitamin 100 mg PO QAM 30 Days #30 tab 05/18/19 Rx B-1] Patient History Medical History Alcohol abuse Alcohol consumption binge drinking (Acute) Atrial fibrillation (Acute) HTN (hypertension) Prostatitis (Acute) Tobacco abuse Surgical History History of ankle surgery R ankle ligament reconstruction History of shoulder surgery History of vasectomy Hx of rotator cuff surgery Family History Father Congenital heart defect Hypertension Mother Hypertension Aunt Myocardial infarction Denies family history of Arrhythmia Social History Preferred Language: Portuguese Communication Ability: Effective Physical Instructor Required: No Beliefs That Will Affect Care: None marital status: Current Living Situation: Spouse and Family Current Living Situation Comment: lives at home with and daughters current occupational status: employed 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 Other Information That Helps Us Care for You: No Feels Safe at Home: Yes Safety Concerns: Feels Safe At This Time Smoking Status: Current every day smoker Tobacco Type: cigarettes and smokeless tobacco ; packs per day: 1 ; Years Smoked: 22 ; Do You Dip or Chew Tobacco: Yes ; Second Hand Exposure: Yes ; Tobacco Cessation Education Requested by Patient: No Hx Alcohol Use: Yes Alcohol type: beer and hard liquor Alcohol Intake Frequency: Daily Alcohol Intake Frequency Comment: 10-12 beers daily Hx Substance Use: No Review of Systems Review of Systems: All systems reviewed & are unremarkable except as noted in HPI & below Physical Exam Physical Exam: Physical Exam: General: Awake, alert and oriented x 3. No acute distress. HEENT: Normocephalic, atraumatic. Pupils equal, round and reactive to light and accommodation. Extraocular muscles are intact. Anicteric sclera. Moist mucous membranes. Neck: No JVD. No bruit. Cardiovascular: Regular. No S-4. Normal S-1 and S-2. No S-3. No murmurs, rubs or gallops. Pulmonary: Clear to auscultation bilaterally. No rales, rhonchi, or wheezing. Abdomen: Bowel sounds x 4, soft. No rebound, guarding or tenderness. No organomegaly. Extremities: No clubbing, cyanosis or edema. +2 pedal pulses bilaterally. Skin: Warm and dry. Results & Data ([facility]) Vital Signs (Past 12 Hours) Vital Signs Temp Pulse Pulse Pulse Resp BP BP 05/18/19 11:02 36.5 C 84 18 129/84 05/18/19 08:04 36.5 C 78 20 137/91 05/18/19 07:00 77 05/18/19 03:59 37.0 C 88 18 138/87 05/18/19 00:45 82 Pulse Ox 05/18/19 11:02 94 05/18/19 08:04 93 05/18/19 07:00 05/18/19 03:59 95 05/18/19 00:45
[2019-05-18] MEDS ORDERED: GABAPENTIN 600 MG TAB PO SCH (22:00)
--- NOTE | 2019-05-19 10:16 | Electrocardiogram Report ---
Test Reason : Blood Pressure : / mmHG Vent. Rate : 114 BPM Atrial Rate : 101 BPM P-R Int : 000 ms QRS Dur : 074 ms QT Int : 272 ms P-R-T Axes : 000 022 028 degrees QTc Int : 374 ms Atrial fibrillation with rapid ventricular response with premature ventricular or aberrantly conducte d complexes Abnormal ECG When compared with ECG of 16-AUG-2018 08:47, Atrial fibrillation has replaced Sinus rhythm Confirmed by Roscoe Roque ([id number]) on 05/19/2019 10:16:16 AM Referred By: REFERRED SELF Confirmed By:Roscoe Roque
--- NOTE | 2019-05-19 10:24 | Electrocardiogram Report ---
Test Reason : Blood Pressure : / mmHG Vent. Rate : 078 BPM Atrial Rate : 078 BPM P-R Int : 156 ms QRS Dur : 080 ms QT Int : 332 ms P-R-T Axes : 004 010 039 degrees QTc Int : 378 ms Normal sinus rhythm Normal ECG When compared with ECG of 17-MAY-2019 13:52, (unconfirmed) Sinus rhythm has replaced Atrial fibrillation Nonspecific T wave abnormality now evident in Lateral leads Confirmed by Roscoe Roque ([id number]) on 05/19/2019 10:24:00 AM Referred By: REFERRED SELF Confirmed By:Roscoe Roque
--- NOTE | 2019-05-19 10:29 | Electrocardiogram Report ---
Test Reason : Blood Pressure : / mmHG Vent. Rate : 075 BPM Atrial Rate : 075 BPM P-R Int : 160 ms QRS Dur : 080 ms QT Int : 364 ms P-R-T Axes : 024 050 055 degrees QTc Int : 406 ms Normal sinus rhythm Septal infarct , age undetermined Abnormal ECG When compared with ECG of 18-MAY-2019 03:55, (unconfirmed) No significant change was found Confirmed by Roscoe Roque ([id number]) on 05/19/2019 10:29:03 AM Referred By: REFERRED SELF Confirmed By:Roscoe Roque
[2019-05-20] MEDS ORDERED: GABAPENTIN 600 MG TAB PO SCH
[2019-05-21] MEDS ORDERED: GABAPENTIN 600 MG TAB PO SCH (12:00)
== END 2019-05-18 13:04 | disposition home or self-care (01) | DRG 310 ==
LOC: ED 13:39 → 2S 16:42 → SUATTDRO 16:42 → 2S 17:35